=== PATIENT | male | born 1955 | race Caucasian/White ===

== ENCOUNTER 2025-09-02 13:59 | Emergency (ER) | payer OTHER, MEDICAID ==
[~2025-09-02] VITALS: Ht 182.9 cm; Wt 86.3 kg
[2025-09-02 14:04] VITALS: BP 138/82; RESP 18; TEMP 98; O2SAT 95
[2025-09-02 14:36] LABS: Hematocrit 45.8 % (41.0-53.0); Hemoglobin 15.5 g/dL (13.5-17.5); Mean Corpuscular Hemoglobin 29.2 pg (28.0-32.0); Mean Corpuscular Volume 86.2 fL (80.0-100.0); Nucleated Red Blood Cells % 0.1 %
[2025-09-02 14:44] LABS: Potassium 4.2 mmol/L (3.5-5.1); Sodium 140 mmol/L (136-145)
[2025-09-02 14:45] LABS: Anion Gap 8 (5-15); Carbon Dioxide 23 mmol/L (20-31)
[2025-09-02 14:46] LABS: Calcium 9.4 mg/dL (8.7-10.4)
--- NOTE | 2025-09-02 14:48 | DVH ---
EXAM: XY CHEST PORTABLE HISTORY: CHEST PAIN COMPARISON: None TECHNIQUE: Portable upright AP view of the chest was performed. FINDINGS: No pneumothorax, consolidative infiltrates, or pulmonary edema. There is mild central peribronchial thickening. The heart is not enlarged. IMPRESSION: Mild reactive airways disease. The lungs are otherwise clear.
[2025-09-02 14:50] LABS: Chloride 109 mmol/L (98-107)
[2025-09-02 14:51] LABS: BUN/Creatinine Ratio 18.9 (10.0-20.0); Blood Urea Nitrogen 21 mg/dL (9-23)
[2025-09-02 14:52] LABS: Glucose 107 mg/dL (74-106)
[2025-09-02 14:59] VITALS: PULSE 64
--- NOTE | 2025-09-02 14:59 | ED.PDOC ---
HPI Comments 70y M who presents to the ED for chief complaint of chest pain. Pt states he had chest pain last night at 7 PM. Pt states his pain started after he noticed his dog eating his oatmeal cookies. Pt states the pain was across his chest, with pain radiating to the jaw, pressure like in nature, rating the pain 5/10, constant, with no associated exacerbating or relieving factors. Pt had associated shortness of breath and nausea since last which has persisted . Pt states his pain went away but states it came back later that evening after his girlfriend came home. Pt states he came today for further evaluation. Pt in the ED,denies any current chest pain now in the ED but has persistence of his shortness of breath and nausea. Pt otherwise has stable vitals in the ED. Pt denies any other symptoms at this time. Pt denies these symptoms in the past. Chief Complaint: Chest Pain Time Seen by MD: 14:56 Reviewed Notes: Nurses Notes, Medications, Allergies Allergies: Coded Allergies: No Known Drug Allergy (Verified Allergy, Unknown, 09/02/25) Information Source: Patient Mode of Arrival: Wheelchair Brought in by: self Severity: Moderate Timing: Hours Duration: Since onset Prehospital treatment: None Location: Chest (R), Chest (L) Radiation: Jaw Quality: Pressure Onset: At Rest Cardiac Risk Factors: Hyperlipidemia, HTN, Diabetes PE Risk Factors: None Modifying Factors: Nothing Associated Signs and Symptoms: SOB, N/V Past Medical History PAST MEDICAL HISTORY: DM, High Lipids, HTN Surgical History (Other): R knee Family History Family History: Family hx of heart topher Social History Smoker: Non-Smoker Alcohol: Denies ETOH Use Drugs: Marijuana Lives In: Home Constitutional: denies: chills, diaphoresis, fatigue, fever, malaise, sweats, weakness, others EENTM: denies: blurred vision, double vision, ear bleeding, ear discharge, ear drainage, ear pain, ear ringing, eye pain, eye redness, hearing loss, mouth pain, mouth swelling, nasal discharge, nose bleeding, nose congestion, nose pain, photophobia, tearing, throat pain, throat swelling, voice changes, others Respiratory: reports: shortness of breath; denies: cough, hemoptysis, orthopnea, SOB at rest, SOB with excertion, stridor, wheezing, others Cardiovascular: reports: chest pain; denies: dizzy spells, diaphoresis, Dyspnea on exertion, edema, irregular heart beat, left arm pain, lightheadedness, palpitations, PND, syncope, others Gastrointestinal: reports: nausea; denies: abdomen distended, abdominal pain, blood streaked bowels, constipated, diarrhea, dysphagia, difficulty swallowing, hematemesis, melena, poor appetite, poor fluid intake, rectal bleeding, rectal pain, vomiting, others Genitourinary: denies: burning, dysuria, flank pain, frequency, hematuria, incontinence, penile discharge, penile sore, pain, testicle pain, testicle swelling, urgency, others Neurological: denies: dizziness, fainting, headache, left sided numbness, left sided weakness, numbness, paresthesia, pre-existing deficit, right sided numb ness, right sided weakness, seizure, speech problems, tingling, tremors, weakness, others Musculoskeletal: denies: back pain, gout, joint pain, joint swelling, muscle pain, muscle stiffness, neck pain, others Integumetry: denies: bruises, change in color, change in hair/nails, dryness, laceration, lesions, lumps, rash, wounds, others Allergic/Immunocompromised: denies: Difficulty Healing, Frequent Infections, Hives, Itching, others Hematologic/Lymphatic: denies: anemia, blood clots, easy bleeding, easy bruising, swollen glands, others Psychiatric: denies: anxiety, bipolar disorder, depression, hopeless, panic disorder, schizophrenia, sleepless, suicidal, others All Other Systems: Reviewed and Negative Physical Exam General Appearance: Moderate Distress HEENT: Normal ENT Inspection, Pharynx Normal, TMs Normal Neck: Full Range of Motion, Non-Tender, Normal, Normal Inspection Respiratory: Chest Non-Tender, Lungs Clear, No Accessory Muscle Use, No Respiratory Distress, Normal Breath Sounds Cardiovascular: No Edema, No JVD, No Murmur, No Gallop, Normal Peripheral Pulses, Regular Rate/Rhythm Breast Exam: Deferred Gastrointestinal: No Organomegaly, Non Tender, No Pulsatile Mass, Normal Bowel Sounds, Soft Genitalia: Deferred Pelvic: Deferred Rectal: Deferred Extremities: No calf tenderness, Normal capillary refill, Normal inspection, Normal range of motion, Non-tender, No pedal edema Musculoskeletal : Apperance: Normal Neurologic: Alert, stamp classifier II-XII nml as Tested, No Motor Deficits, Normal Affect, Normal Mood, No Sensory Deficits Cerebellar Function: Normal Reflexes: Normal Skin: Dry, Normal Color, Warm Lymphatic: No Adenopathy EKG EKG : Pulse Rate (adult): 64 [place]: Normal Cardiac Rhythm: NSR Block: None Hypertrophy: None ST: Normal Was a procedure done? Was a procedure done?: No CP Differential Dx Differential Diagnosis: A-fib, A-Flutter, Angina, Anxiety / Panic Attack, Atrial Dysrhythmia, AV Block 1st Degree, MD, Pulmonary Embolus, PVC's, Sinus Tachycardia Differential Diagnosis: Chest Wall Pain, Costochondritis, Esophageal reflux/spasm, Gastritis, Pericarditis, Pneumonia X-Ray, Labs, Meds, VS Vital Signs Date Time Temp Pulse Resp B/P (MAP) Pulse Ox O2 Delivery O2 Flow Rate FiO2 09/02/25 14:59 64 09/02/25 14:08 64 09/02/25 14:04 98.0 74 18 138/82 95 98.0 Lab Test 09/02/25 15:14 09/02/25 14:25 Range/Units Troponin I High Sensitivity Pending 35651 *H </=54 ng/L White Blood Count 12.8 H 4.4-10.8 10^3/uL Red Blood Count 5.31 4.5-5.90 10^6/uL Hemoglobin 15.5 13.5-17.5 g/dL Hematocrit 45.8 41.0-53.0 % Mean Corpuscular Volume 86.2 80.0-100.0 fL Mean Corpuscular Hemoglobin 29.2 28.0-32.0 pg Mean Corpuscular Hemoglobin Concent 33.9 32.0-36.0 g/dL Red Cell Distribution Width 12.7 11.8-14.3 % Platelet Count 255 140-450 10^3/uL Mean Platelet Volume 8.0 6.9-10.8 fL Neutrophils (%) (Auto) 67.5 37.0-80.0 % Lymphocytes (%) (Auto) 18.5 10.0-50.0 % Monocytes (%) (Auto) 9.3 0.0-12.0 % Eosinophils (%) (Auto) 3.9 0.0-7.0 % Basophils (%) (Auto) 0.8 0.0-2.0 % Neutrophils # (Auto) 8.7 H 1.6-8.6 10 ^3/uL Lymphocytes # (Auto) 2.4 0.4-5.4 10 ^3/uL Monocytes # (Auto) 1.2 0-1.3 10 ^3/uL Eosinophils # (Auto) 0.5 0-0.8 10 ^3/uL Basophils # (Auto) 0.1 0-0.2 10 ^3/uL Nucleated Red Blood Cells 0.1 % Sodium Level 140 136-145 mmol/L Potassium Level 4.2 3.5-5.1 mmol/L Chloride Level 109 H 98-107 mmol/L Carbon Dioxide Level 23 20-31 mmol/L Anion Gap 8 5-15 Blood Urea Nitrogen 21 9-23 mg/dL Creatinine 1.11 0.700-1.30 mg/dL Glomerular Filtration Rate Calc 71 >90 mL/min BUN/Creatinine Ratio 18.9 10.0-20.0 Serum Glucose 107 H 74-106 mg/dL Calcium Level 9.4 8.7-10.4 mg/dL PROCEDURE(s): CXRP - CHEST PORTABLE IMPRESSION: Mild reactive airways disease. The lungs are otherwise clear. IV Hep-Lock was established The CBC shows an elevated white blood cell count of 12.8 The rest of the CBC and the chemistry panel are within normal limits. [place] 1[place] [id number] The patient now states that he is leaving AMA. The patient did not want to listen so the patient has signed out AMA. We did tell him that the patient is having a heart attack but he is leaving any ways. The repeat EKG did not show ST-elevation so this is considered a non STEMI. Images Reviewed?: Images reviewed and evaluated by me Time of 1ST Reevaluation: 15:30 Reevaluation 1ST: Unchanged Patient Education/Counseling: Diagnosis, Treatment, Prognosis Family Education/Counseling: No Family Present SEPSIS Sepsis Screen Date sepsis recognized/suspect: Sep 02, 2025 Time Sepsis recognized/suspect: 1407 Recent Procedure: No On Antibiotic Therapy: No Respiratory Rate >20: No Heart Rate >90: No Temp<36 C (96.8 F) or >38.3 C: No SBP <90 or MAP <65 mmHG: No New Acute Mental Status Change: No Is the patient on CPAP, BIPAP,: No Physician Orders Chest Portable (09/02/25 14:09) Urinalysis (09/02/25 14:09) Electrocardigram (09/02/25 14:09) Troponin-I Hs (09/02/25 15:09) Electrocardigram (09/02/25 15:09) Electrocardigram (09/02/25 17:09) Heplock Iv (09/02/25 ) Vital Signs Date Time Temp Pulse Resp B/P (MAP) Pulse Ox O2 Delivery O2 Flow Rate FiO2 09/02/25 14:59 64 09/02/25 14:08 64 09/02/25 14:04 98.0 74 18 138/82 95 98.0 Laboratory Tests Test 09/02/25 14: White Blood Count 12.8 10^3/uL (4.4-10.8) H Departure 1 Departure Time of Disposition: 15:42 Impression: Primary Impression: Non-STEMI (non-ST elevated myocardial infarction) Additional Impression: Elevated troponin Disposition: ADMITTED INPATIENT Admit to: Tele Condition: Fair Critical Care Note Critical Care Time?: Yes (45 min-critical care time only) Stability Stability form required: Yes Unstable for transfer: Telemetry monitoring (Telemetry monitoring required), ED Physician Assesment (Clinical assesment) Heart Score Heart Score: Heart Score Response (Comments) Value History Moderate Suspicious 1 EKG Normal 0 Age <45 0 Risk Factors >3 or Hx ASHD 2 Troponin >3 x's Normal limit 2 Total 5 I personally scribed for KATHRINE HILL MD ([email or web address]) on 09/02/25 at 14:59. Electronically submitted by Kasie Rosario ([email or web address]). I personally scribed for KATHRINE HILL MD (SHERMAN) on 09/02/25 at 15:00. Electronically submitted by Kasie Rosario ([email or web address]). I personally scribed for KATHRINE HILL MD (SHERMAN) on 09/02/25 at 15:21. Electronically submitted by Kasie Rosario ([email or web address]). KATHRINE HILL MD Sep 02, 2025 14:59
[2025-09-02] MEDS ORDERED: LISI40TA16 PO (21:31)
[2025-09-02] MEDS ORDERED: AMLO1TAB23 PO (21:31)
--- NOTE | 2025-09-02 23:09 | ECG ---
[facility] Test Date: 2025-09-02 Test Time: 21:12:41 Pat Name: JING HARGROVE Department: ED Room: Gender: M Administrative Services Director: : 1955 Requested By: KATHRINE HILL Order Number: [id number] Reading MD: Measurements Intervals [place] Rate: 62 P: 53 PA: 174 QRS: -26 QRSD: 92 T: -23 QT: 422 QTc: 429 Interpretive Statements Sinus rhythm Inferior infarct, age indeterminate Please click the below link to view image of tracing.
--- NOTE | 2025-09-03 10:43 | ECG ---
[facility] Test Date: 2025-09-02 Test Time: 14:08:28 Pat Name: JING HARGROVE Department: ED Room: Gender: M Welfare Director: SIOBHAN : 1955 Requested By: KATHRINE HILL Order Number: [id number] Reading MD: Measurements Intervals [place] Rate: 64 P: 56 [place]: 173 QRS: -22 QRSD: 88 T: -3 QT: 396 QTc: 409 Interpretive Statements Sinus rhythm Inferior infarct, old Please click the below link to view image of tracing.
--- NOTE | 2025-09-03 10:43 | ECG ---
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
[2025-09-03] MEDS ORDERED: LORazepam 2MG/ML-1ML VIAL ONE (10:46)
[2025-09-03] MEDS ORDERED: ANGIOMAX 250 MG VIAL IV ONE (18:43)
[2025-09-03] MEDS ORDERED: SODIUM CHL 0.9% 50 ML ONE (18:43)
[2025-09-03] MEDS ORDERED: EPTIFIBATIDE INJ (2MG/ML) 10ML VIAL IV ONE (18:44)
[2025-09-05] MEDS ORDERED: ASPI-325 PO (11:14)
[2025-09-05] MEDS ORDERED: ATOR80TA PO (11:14)
[2025-09-05] MEDS ORDERED: CLOP75TA70 PO (11:14)
== END 2025-09-02 15:35 | disposition left against medical advice (07) ==
LOC: ER 13:59
DX: I21.4 Non-ST elevation (NSTEMI) myocardial infarction (principal); I10 Essential (primary) hypertension; E11.9 Type 2 diabetes mellitus without complications; J45.909 Unspecified asthma, uncomplicated; E78.5 Hyperlipidemia, unspecified; Z98.890 Other specified postprocedural states
CPT/HCPCS: 36415; 71045; 80048; 84484; 85025; 93005; 99291

== ENCOUNTER 2025-09-02 18:25 | Inpatient (IN) | payer OTHER, MEDICAID ==
[~2025-09-02] VITALS: Ht 182.9 cm; Wt 99.7 kg
--- NOTE | 2025-09-02 18:41 | ED.PDOC ---
HPI Comments 70-year-old male who came to ER for chest pains. Patient does have history of hypertension, diabetes, dyslipidemia, chronic smoker. Started having chest pains last night, sternal radiating to his jaw, associated with nausea. Patient went to ER earlier, diagnostics done, was being admitted for NSTEMI, however patient signed AMA. Patient decided come back to be re-evaluated for his chest pains Chief Complaint: Chest pain Time Seen by MD: 18:41 Reviewed Notes: Nurses Notes Allergies: Coded Allergies: No Known Drug Allergy (Verified Allergy, Unknown, 09/02/25) Information Source: Patient Mode of Arrival: Ambulatory Severity: Moderate Timing: Hours Duration: Minutes Prehospital treatment: 12 Lead EKG Location: Substernal Radiation: Jaw Past Medical History PAST MEDICAL HISTORY: DM, High Lipids, HTN Surgical History (Other): Right knee surgery Family History Family History: Family hx of heart topher Social History Smoker: Cigarettes, Greater Than 1 Pack/Day Alcohol: Denies ETOH Use Drugs: Marijuana Lives In: Home Constitutional: denies: chills, diaphoresis, fatigue, fever, malaise, sweats, weakness, others EENTM: denies: blurred vision, double vision, ear bleeding, ear discharge, ear drainage, ear pain, ear ringing, eye pain, eye redness, hearing loss, mouth pain, mouth swelling, nasal discharge, nose bleeding, nose congestion, nose pain, photophobia, tearing, throat pain, throat swelling, voice changes, others Respiratory: denies: cough, hemoptysis, orthopnea, SOB at rest, shortness of breath, SOB with excertion, stridor, wheezing, others Cardiovascular: reports: chest pain; denies: dizzy spells, diaphoresis, Dyspnea on exertion, edema, irregular heart beat, left arm pain, lightheadedness, palpitations, PND, syncope, others Gastrointestinal: reports: nausea; denies: abdomen distended, abdominal pain, blood streaked bowels, constipated, diarrhea, dysphagia, difficulty swallowing, hematemesis, melena, poor appetite, poor fluid intake, rectal bleeding, rectal pain, vomiting, others Genitourinary: denies: burning, dysuria, flank pain, frequency, hematuria, incontinence, penile discharge, penile sore, pain, testicle pain, testicle swelling, urgency, others Neurological: denies: dizziness, fainting, headache, left sided numbness, left sided weakness, numbness, paresthesia, pre-existing deficit, right sided numbness, right sided weakness, seizure, speech problems, tingling, tremors, weakness, others Musculoskeletal: denies: back pain, gout, joint pain, joint swelling, muscle pain, muscle stiffness, neck pain, others Integumetry: denies: bruises, change in color, change in hair/nails, dryness, laceration, lesions, lumps, rash, wounds, others Allergic/Immunocompromised: denies: Difficulty Healing, Frequent Infections, Hives, Itching, others Hematologic/Lymphatic: denies: anemia, blood clots, easy bleeding, easy bruising, swollen glands, others Endocrine: denies: excessive hunger, excessive sweating, excessive thirst, excessive urination, flushing, intolerance to cold, intolerance to heat, un explained weight gain, unexplained weight loss, others Psychiatric: denies: anxiety, bipolar disorder, depression, hopeless, panic disorder, schizophrenia, sleepless, suicidal, others Physical Exam General Appearance: Mild Distress HEENT: Normal ENT Inspection, Pharynx Normal, TMs Normal Neck: Full Range of Motion, Non-Tender, Normal, Normal Inspection Respiratory: Chest Non-Tender, Lungs Clear, No Accessory Muscle Use, No Respiratory Distress, Normal Breath Sounds Cardiovascular: No Edema, No JVD, No Murmur, No Gallop, Normal Peripheral Pulses, Regular Rate/Rhythm Breast Exam: Deferred Gastrointestinal: Soft, Other (obese) Genitalia: Deferred Pelvic: Deferred Rectal: Deferred Extremities: No calf tenderness, Normal capillary refill, Normal inspection, Normal range of motion, Non-tender, No pedal edema Musculoskeletal : Apperance: Normal Neurologic: Alert, podiatry professor II-XII nml as Tested, No Motor Deficits, Normal Affect, Normal Mood, No Sensory Deficits Cerebellar Function: Normal Reflexes: Normal Skin: Dry, Normal Color, Warm Lymphatic: No Adenopathy EKG EKG : Pulse Rate (adult): 77 Cardiac Rhythm: NSR Hypertrophy: LAE Was a procedure done? Was a procedure done?: No CP Differential Dx Differential Diagnosis: Angina, Anxiety / Panic Attack Differential Diagnosis: Angina, Chest Wall Pain, Costochondritis, Esophageal reflux/spasm, Gastritis, Myocardial Infarction X-Ray, Labs, Meds, VS Vital Signs Date Time Temp Pulse Resp B/P (MAP) Pulse Ox O2 Delivery O2 Flow Rate FiO2 09/02/25 19:54 67 17 145/86 09/02/25 18:57 20 98 Room Air* 0 21 09/02/25 18:44 97.9 74 16 144/83 95 97.9 09/02/25 18:41 77 09/02/25 18:32 66 Lab Test 09/02/25 19:47 09/02/25 18:52 Range/Units Troponin I High Sensitivity Pending 28377 *H </=54 ng/L White Blood Count 10.9 H 4.4-10.8 10^3/uL Red Blood Count 5.20 4.5-5.90 10^6/uL Hemoglobin 15.3 13.5-17.5 g/dL Hematocrit 44.9 41.0-53.0 % Mean Corpuscular Volume 86.3 80.0-100.0 fL Mean Corpuscular Hemoglobin 29.4 28.0-32.0 pg Mean Corpuscular Hemoglobin Concent 34.1 32.0-36.0 g/dL Red Cell Distribution Width 12.8 11.8-14.3 % Platelet Count 248 140-450 10^3/uL Mean Platelet Volume 8.0 6.9-10.8 fL Neutrophils (%) (Auto) 65.3 37.0-80.0 % Lymphocytes (%) (Auto) 20.2 10.0-50.0 % Monocytes (%) (Auto) 9.6 0.0-12.0 % Eosinophils (%) (Auto) 4.2 0.0-7.0 % Basophils (%) (Auto) 0.7 0.0-2.0 % Neutrophils # (Auto) 7.1 1.6-8.6 10 ^3/uL Lymphocytes # (Auto) 2.2 0.4-5.4 10 ^3/uL Monocytes # (Auto) 1.0 0-1.3 10 ^3/uL Eosinophils # (Auto) 0.5 0-0.8 10 ^3/uL Basophils # (Auto) 0.1 0-0.2 10 ^3/uL Nucleated Red Blood Cells 0.2 % Prothrombin Time 10.8 9.3-11.8 sec Prothrombin Time INR 1.02 0.9-1.15 Activated Partial Thromboplast Time 30.0 24.5-34.5 SEC Sodium Level 139 136-145 mmol/L Potassium Level 4.2 3.5-5.1 mmol/L Chloride Level 109 H 98-107 mmol/L Carbon Dioxide Level 22 20-31 mmol/L Anion Gap 8 5-15 Blood Urea Nitrogen 19 9-23 mg/dL Creatinine 1.06 0.700-1.30 mg/dL Glomerular Filtration Rate Calc 75 >90 mL/min BUN/Creatinine Ratio 17.9 10.0-20.0 Serum Glucose 104 74-106 mg/dL Calcium Level 9.3 8.7-10.4 mg/dL Magnesium Level 2.0 1.6-2.6 mg/dL Total Bilirubin 0.4 0.2-1.0 mg/dL Aspartate Amino Transferase (AST) 100 H 13-40 U/L Alanine Aminotransferase (ALT) 22 7-40 U/L Alkaline Phosphatase 56 46-116 U/L B-Type Natriuretic Peptide 230.03 0-100 pg/mL Total Protein 6.9 5.7-8.2 g/dL Albumin 4.2 3.2-4.8 g/dL Current Medications Medications (Trade) Dose Ordered Sig/Ebony Route Start Time Stop Time Status Last Admin Aspirin 162 mg ONCE ONCE PO 09/02/25 18:45 09/02/25 18:46 DC 09/02/25 19:01 Morphine Sulfate 4 mg ONCE ONCE IV 09/02/25 18:45 09/02/25 18:46 DC 09/02/25 19:54 Ondansetron HCl (Zofran) 4 mg ONCE ONCE IV 09/02/25 18:45 09/02/25 18:46 DC 09/02/25 19:54 Albuterol (Ventolin Medneb) 2.5 mg ONCE ONCE NEB 09/02/25 18:45 09/02/25 18:46 DC 09/02/25 18:56 Time of 1ST Reevaluation: 18:37 Reevaluation 1ST: Unchanged Patient Education/Counseling: Diagnosis, Treatment Family Education/Counseling: No Family Present SEPSIS Sepsis Screen Physician Orders Electrocardigram (09/02/25 18:35) Troponin-I Hs (09/02/25 19:35) Troponin-I Hs (09/02/25 21:35) Electrocardigram (09/02/25 19:35) Electrocardigram (09/02/25 21:35) Chest Xray 1 View (09/02/25 18:35) Platelet Monitoring (09/02/25 20:04) Heparin Per Standardized Proce (09/02/25 20:04) Discontinue All Im Injections (09/02/25 20:04) Heparin Sodium (Porcine) (09/02/25 20:15) Heparin Drip/D5w 100units/Ml (09/02/25 20:15) Vital Signs Date Time Temp Pulse Resp B/P (MAP) Pulse Ox O2 Delivery O2 Flow Rate FiO2 09/02/25 19:54 67 17 145/86 09/02/25 18:57 20 98 Room Air* 0 21 09/02/25 18:44 97.9 74 16 144/83 95 97.9 09/02/25 18:41 77 09/02/25 18:32 66 Laboratory Tests Test 09/02/25 18:52 White Blood Count 10.9 10^3/uL (4.4-10.8) H Medications Medications Dose Ordered Sig/Ebony Route Start Time Stop Time Status Last Admin Dose Admin Albuterol 2.5 mg ONCE ONCE NEB 09/02/25 18:45 09/02/25 18:46 DC 09/02/25 18:56 Aspirin 162 mg ONCE ONCE PO 09/02/25 18:45 09/02/25 18:46 DC 09/02/25 19:01 Morphine Sulfate 4 mg ONCE ONCE IV 09/02/25 18:45 09/02/25 18:46 DC 09/02/25 19:54 Ondansetron HCl 4 mg ONCE ONCE IV 09/02/25 18:45 09/02/25 18:46 DC 09/02/25 19:54 Departure 1 Departure Time of Disposition: 20:07 Impression: Primary Impression: Non-STEMI (non-ST elevated myocardial infarction) Additional Impression: Acute coronary syndrome Disposition: ADMITTED INPATIENT Admit to: Tele Condition: Guarded Discharged With: Self Comments 70-year-old male with chest pain. He was seen earlier this morning and left against medical advice. He is still having chest pain[place] [address]. I ordered aspirin and nitroglycerin and heparin bolus and drip. No signs of STEMI on the EKG. Patient will need to be admitted for supportive care and further workup and cardiology consultation Critical Care Note Critical Care Time?: Yes (35 min-critical care time only) Critical care comment: Chest painsTotal critical care time: Approximately 36 minutes Due to a high probability of clinically significant, life threatening d eterioration, the patient required my highest level of preparedness to intervene emergently and I personally spent this critical care time directly and personally managing the patient. This critical care time included obtaining a history; examining the patient; pulse oximetry; ordering and review of studies; arranging urgent treatment with development of a management plan; evaluation of patient's response to treatment; frequent reassessment; and, discussions with other providers. This critical care time was performed to assess and manage the high probability of imminent, life-threatening deterioration that could result in multi-organ failure. It was exclusive of separately billable procedures and treating other patients. Stability Stability form required: No Heart Score Heart Score: Heart Score Response (Comments) Value History Moderate Suspicious 1 EKG Repolarization Disturb 1 Age >65 2 Risk Factors >3 or Hx ASHD 2 Troponin >3 x's Normal limit 2 Total 8 I personally scribed for RON RITTER MD ([email or web address]) on 09/02/25 at 18:41. Electronically submitted by Foster Lombardo ([email or web address]). RON RITTER MD Sep 02, 2025 18:41
[2025-09-02] MEDS: ALBUTEROL SULF 2.5 MG/0.5ML(0.5%) NEB SOLN NEB ONE (18:56)
[2025-09-02 19:13] LABS: Hematocrit 44.9 % (41.0-53.0); Hemoglobin 15.3 g/dL (13.5-17.5); Mean Corpuscular Hemoglobin 29.4 pg (28.0-32.0); Mean Corpuscular Volume 86.3 fL (80.0-100.0); Nucleated Red Blood Cells % 0.2 %
[2025-09-02 19:24] LABS: INR 1.02 (0.9-1.15); Partial Thromboplastin Time 30.0 SEC (24.5-34.5); Prothrombin Time 10.8 sec (9.3-11.8)
[2025-09-02 19:33] LABS: Alanine Aminotransferase 22 U/L (7-40); Albumin 4.2 g/dL (3.2-4.8); Alkaline Phosphatase 56 U/L (46-116); Anion Gap 8 (5-15); BUN/Creatinine Ratio 17.9 (10.0-20.0); Blood Urea Nitrogen 19 mg/dL (9-23); Calcium 9.3 mg/dL (8.7-10.4); Carbon Dioxide 22 mmol/L (20-31); Glucose 104 mg/dL (74-106); Magnesium 2.0 mg/dL (1.6-2.6); Potassium 4.2 mmol/L (3.5-5.1); Sodium 139 mmol/L (136-145); Total Protein 6.9 g/dL (5.7-8.2)
[2025-09-02 19:34] LABS: Bilirubin, Total 0.4 mg/dL (0.2-1.0)
--- NOTE | 2025-09-02 19:34 | DVH ---
CHEST RADIOGRAPH INDICATION: chest pain TECHNIQUE: Single frontal view of the chest was obtained. COMPARISON: XY CHEST PORTABLE on DOS: 09/02/25 FINDINGS: Pulmonary vascular congestion. No significant pleural effusion. No pneumothorax. Stable cardiomediastinal silhouette. IMPRESSION: Pulmonary vascular congestion.
[2025-09-02 19:37] LABS: Chloride 109 mmol/L (98-107)
[2025-09-02] MEDS: NITROGLYCERIN 0.4 MG SL TAB SL ONE (19:49)
[2025-09-02] MEDS: MORPHINE SULFATE 4 MG/ML SYR/VIAL IV ONE (19:54)
[2025-09-02] MEDS: ONDANSETRON HCL 4 MG/2 ML VIAL IV ONE (19:54)
[2025-09-02] MEDS: HEPARIN SODIUM (PORCINE) 5000 UNITS/ML 1ML VIAL IV ONE (20:44)
[2025-09-02] MEDS: HEPARIN DRIP/D5W 100UNITS/ML 250 ML IV SCH (20:46)
[2025-09-02 20:57] VITALS: PULSE 67; RESP 17; O2SAT 95
[2025-09-02] MEDS ORDERED: MORPHINE SULFATE INJ 2 MG/ml SYRG IV PRN ×2 (21:00)
[2025-09-02] MEDS ORDERED: NITROGLYCERIN 0.4 MG SL TAB SL PRN (21:00)
--- NOTE | 2025-09-02 21:07 | DVHHPRES ---
History of Present Illness Resident Creating Document: JO SHRESTHA RESIDENT History of Present Illness Mr. Erik Whitley, in 70-year-old male with past medical history of hypertension, [id number] type 2 diabetes mellitus, COPD not on home oxygen presented to the ER with the complaints of severe retrosternal oppressive chest pain that started 7:00 p.m. yesterday. The chest pain was associated with severe jaw pain, nausea, vomiting. Initially the patient thought it was heart burn because he ate pizza and attributed the jaw pain as dental. He also had a fight with a friend before the pain started. However, the retrosternal oppressive pain started when the patient was lying down, he denies any d iaphoresis. After this episode the patient went to sleep after having a sleeping pill. During history and examination, patient also endorsed anxiety and wanted some sleeping aid. He says usually he is very anxious person. He woke up feeling like hung over, drained, exhausted. He denies shortness of breath, fever, cough, constipation, diarrhea, urinary symptoms, recent sick con tacts or travel history. 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 Allergies: None Home medications: Lisinopril, amlodipine, metformin,aleve, Tylenol, albuterol inhaler Smoking history: 40-80 pack years. Quit 3 months ago Alcohol: 1 bottle per day for 10 years. Quit 4 years ago Drugs: Active marijuana smoker Code status: Full code, however patient would like to revisit this decision again. Review of Systems Cardiovascular: Chest Pain Allergies: Coded Allergies: No Known Drug Allergy (Verified Allergy, Unknown, 09/02/25) Medications Current Medications Medications Dose Ordered Sig/Ebony Route Start Time Stop Time Status Last Admin Dose Admin Heparin Sodium/ Dextrose 250 ml @ 10 mls/hr Q24H IV 09/02/25 20:30 09/02/25 20:46 10 MLS/HR Exam Vital Signs Vital Signs Date Time Temp Pulse Resp B/P (MAP) Pulse Ox O2 Delivery O2 Flow Rate FiO2 09/02/25 19:54 67 17 145/86 09/02/25 18:57 98 Room Air* 0 21 09/02/25 18:44 97.9 97.9 Exam Pt is lying on bed General Appearance: Alert, Oriented X3, Cooperative, Mild distress HEENT: Atraumatic, Mucous membranes moist/pink Respiratory: Clear to auscultation, Normal air movement, No added sounds Cardiovascular: Regular rate, Normal S1, Normal S2, No murmurs Abdominal/ : Active bowel sounds, Soft, no distention, no tenderness Extremities: No edema, Normal pulses, No tenderness/swelling Skin: No Significant rash, except past surgical scars Neuro: Normal speech, sensorimotor deficits none Psych/Mental Status: Mental status NL, Mood NL Nurse was there as theology professor during examination Labs/Xrays Labs Test 09/02/25 19:47 09/02/25 18:52 Range/Units Troponin I High Sensitivity 65913 *H </=54 ng/L White Blood Count 10.9 H 4.4-10.8 10^3/uL Red Blood Count 5.20 4.5-5.90 10^6/uL Hemoglobin 15.3 13.5-17.5 g/dL Hematocrit 44.9 41.0-53.0 % Mean Corpuscular Volume 86.3 80.0-100.0 fL Mean Corpuscular Hemoglobin 29.4 28.0-32.0 pg Mean Corpuscular Hemoglobin Concent 34.1 32.0-36.0 g/dL Red Cell Distribution Width 12.8 11.8-14.3 % Platelet Count 248 140-450 10^3/uL Mean Platelet Volume 8.0 6.9-10.8 fL Neutrophils (%) (Auto) 65.3 37.0-80.0 % Lymphocytes (%) (Auto) 20.2 10.0-50.0 % Monocytes (%) (Auto) 9.6 0.0-12.0 % Eosinophils (%) (Auto) 4.2 0.0-7.0 % Basophils (%) (Auto) 0.7 0.0-2.0 % Neutrophils # (Auto) 7.1 1.6-8.6 10 ^3/uL Lymphocytes # (Auto) 2.2 0.4-5.4 10 ^3/uL Monocytes # (Auto) 1.0 0-1.3 10 ^3/uL Eosinophils # (Auto) 0.5 0-0.8 10 ^3/uL Basophils # (Auto) 0.1 0-0.2 10 ^3/uL Nucleated Red Blood Cells 0.2 % Prothrombin Time 10.8 9.3-11.8 sec Prothrombin Time INR 1.02 0.9-1.15 Activated Partial Thromboplast Time 30.0 24.5-34.5 SEC Sodium Level 139 136-145 mmol/L Potassium Level 4.2 3.5-5.1 mmol/L Chloride Level 109 H 98-107 mmol/L Carbon Dioxide Level 22 20-31 mmol/L Anion Gap 8 5-15 Blood Urea Nitrogen 19 9-23 mg/dL Creatinine 1.06 0.700-1.30 mg/dL Glomerular Filtration Rate Calc 75 >90 mL/min BUN/Creatinine Ratio 17.9 10.0-20.0 Serum Glucose 104 74-106 mg/dL Calcium Level 9.3 8.7-10.4 mg/dL Magnesium Level 2.0 1.6-2.6 mg/dL Total Bilirubin 0.4 0.2-1.0 mg/dL Aspartate Amino Transferase (AST) 100 H 13-40 U/L Alanine Aminotransferase (ALT) 22 7-40 U/L Alkaline Phosphatase 56 46-116 U/L B-Type Natriuretic Peptide 230.03 0-100 pg/mL Total Protein 6.9 5.7-8.2 g/dL Albumin 4.2 3.2-4.8 g/dL SEPSIS Sepsis Screen Date sepsis recognized/suspect: Sep 02, 2025 Time Sepsis recognized/suspect: 1845 Recent Procedure: No On Antibiotic Therapy: No Respiratory Rate >20: No Heart Rate >90: No Temp<36 C (96.8 F) or >38.3 C: No SBP <90 or MAP <65 mmHG: No New Acute Mental Status Change: No Is the patient on CPAP, BIPAP,: No Physician Orders Electrocardigram (09/02/25 18:35) Troponin-I Hs (09/02/25 21:35) Electrocardigram (09/02/25 19:35) Electrocardigram (09/02/25 21:35) Chest Xray 1 View (09/02/25 18:35) Platelet Monitoring (09/02/25 20:04) Heparin Per Standardized Proce (09/02/25 20:04) Discontinue All Im Injections (09/02/25 20:04) Heparin Drip/D5w 100units/Ml (09/02/25 20:30) Heparin Per Pharmacy Protocol (09/02/25 20:28) Admit (09/02/25 20:58) Allergies (09/02/25 20:58) Code Status (09/02/25 20:58) Oxygen Per Hour (09/02/25 20:58) Ondansetron Hcl (Zofran) (09/02/25 21:00) Complete Blood Count (09/03/25 04:00) Comprehensive Metabolic Panel (09/03/25 04:00) Echo 2d Mode Cardiac Dop (09/02/25 20:58) Clear Liq Diet (09/03/25 Breakfast) Morphine Sulfate Injection (09/02/25 21:00) Nitroglycerin Sublingual (Ntrostat Subli (09/02/25 21:00) Morphine Sulfate Injection (09/02/25 21:00) Oxygen By Nasal Cannula (09/02/25 20:58) Stat Ekg For Chest Pain (09/02/25 20:58) Notify Md Of Changes From Base (09/02/25 20:58) Culinary Art Teacher For 24 Hours (09/02/25 20:58) Emergency Dysrhythmia Protocol (09/02/25 20:58) Rhythm Strips Once Every Shift (09/02/25 20:58) Urinalysis (09/02/25 20:58) Drug Screen (09/02/25 20:58) Vital Signs Date Time Temp Pulse Resp B/P (MAP) Pulse Ox O2 Delivery O2 Flow Rate FiO2 09/02/25 19:54 67 17 145/86 09/02/25 18:57 20 98 Room Air* 0 21 09/02/25 18:44 97.9 74 16 144/83 95 97.9 09/02/25 18:41 77 09/02/25 18:32 66 Laboratory Tests Test 09/02/25 18:52 White Blood Count 10.9 10^3/uL (4.4-10.8) H Medications Medications Dose Ordered Sig/Ebony Route Start Time Stop Time Status Last Admin Dose Admin Albuterol 2.5 mg ONCE ONCE NEB 09/02/25 18:45 09/02/25 18:46 DC 09/02/25 18:56 2.5 MG Aspirin 162 mg ONCE ONCE PO 09/02/25 18:45 09/02/25 18:46 DC 09/02/25 19:01 162 MG Heparin Sodium (Porcine) 4,000 units ONCE ONCE IV 09/02/25 20:15 09/02/25 20:16 DC 09/02/25 20:44 4,000 UNITS Heparin Sodium/ Dextrose 250 ml @ 10 mls/hr Q24H IV 09/02/25 20:30 09/02/25 20:46 10 MLS/HR Morphine Sulfate 4 mg ONCE ONCE IV 09/02/25 18:45 09/02/25 18:46 DC 09/02/25 19:54 4 MG Ondansetron HCl 4 mg ONCE ONCE IV 09/02/25 18:45 09/02/25 18:46 DC 09/02/25 19:54 4 MG Assessment/Plan Assessment/Plan Chest pain due to ACS NSTEMI type 1 -morphine -nitroglycerin -ondansetron -troponin trending upwards, currently 14326. -EKG: No ST elevation -Repeat EKG and troponins -patient received aspirin loading dose in the ER -heparin drip started -cardiology consultation History of COPD not on home oxygen, not on exacerbation -breathing treatment with albuterol and ipratropium if needed Hypertensive heart disease -amlodipine 5 mg -lisinopril 40 mg Type 2 diabetes mellitus -serum glucose 104 -HbA1c ordered -mild insulin sliding scale ACHS Marijuana abuse disorder History of smoking, currently on varenicline -counseled regarding cessation for more than14 minutes GI prophylaxis: Pantoprazole DVT prophylaxis: Heparin Diet: Cardiac, NPO after midnight Goals of care discussed with the patient for more than 27 minutes: Full code status Case discussed with Dr. Batista, patient and RN Plan discussed with: Patient, Other (RN) My Orders Orders - JO SHRESTHA RESIDENT Procedure Category Date Status Time Admit ADMIT 09/02/25 Transmitted 20:58 Allergies HOWARD 09/02/25 Transmitted 20:58 Code Status CODE 09/02/25 Transmitted 20:58 Oxygen Per Hour RT 09/02/25 Transmitted 20:58 Ondansetron Hcl PHA 09/02/25 Transmitted (Zofran) 21:00 Complete Blood Count LAB 09/03/25 Verified 04:00 Comprehensive LAB 09/03/25 Verified Metabolic Panel 04:00 Echo 2d Mode Cardiac US 09/02/25 Transmitted DOP 20:58 Clear Liq Diet DIET 09/03/25 Transmitted Breakfast Morphine Sulfate PHA 09/02/25 Transmitted Injection 21:00 Nitroglycerin PHA 09/02/25 Transmitted Sublingual (Ntrostat 21:00 Morphine Sulfate PHA 09/02/25 Transmitted Injection 21:00 Oxygen By Nasal RT 09/02/25 Transmitted Cannula 20:58 Stat Ekg For Chest [facility] 09/02/25 Transmitted Pain 20:58 Notify Of Changes [facility] 09/02/25 Transmitted From Base 20:58 Culinary Art Teacher For [facility] 09/02/25 Transmitted 24 Hours 20:[address] [facility] 09/02/25 Transmitted Protocol 20:58 Rhythm Strips [address] [facility] 09/02/25 Transmitted Every Shift 20:58 Urinalysis LAB 09/02/25 Transmitted 20:58 Drug Screen LAB 09/02/25 Transmitted 20:58 Visit Coding STANDARD RES Billing Provider: TRISTAN BATISTA MD Date of Service if different f: Sep 02, 2025 Common Visit Codes: [id number] INP/OBS CARE (HIGH) Secondary Visit Codes: [id number] CARE PLAN 30 MINUTES JO SHRESTHA RESIDENT Sep 02, 2025 21:07
[2025-09-02] MEDS ORDERED: LISI40TA16 PO (21:31)
[2025-09-02] MEDS ORDERED: AMLO1TAB23 PO (21:31)
[2025-09-02 21:48] LABS: Cholesterol 179 mg/dL (< 200)
[2025-09-02 21:50] LABS: HDL Cholesterol 39 mg/dL (40-59); Triglycerides 186 mg/dL (< 150)
[2025-09-02] MEDS: MELATONIN 5 MG TAB PO ONE (22:00)
[2025-09-02 22:09] VITALS: O2SAT 95
[2025-09-02 22:13] VITALS: BP 139/82; PULSE 82; RESP 18; O2SAT 98
[2025-09-02 22:16] VITALS: BP 133/79; PULSE 64; RESP 18; TEMP 97.7; O2SAT 97
[2025-09-02 22:27] LABS: Urine Budding Yeast OCCASIONAL /hpf (None Seen); Urine Protein, UAD Negative (Negative)
[2025-09-02 22:40] LABS: INR 1.05 (0.9-1.15); Prothrombin Time 11.1 sec (9.3-11.8)
[2025-09-02 22:41] LABS: Cannabinoid Screen, Urine Pos (NEGATIVE); Opiate Scree,Urine Neg (NEGATIVE)
[2025-09-02 22:44] LABS: Amphetamine Screen, Urine Neg (NEGATIVE); Barbiturate Scree,Urine Neg (NEGATIVE); Benzodiazephine Screen, Urine Neg (NEGATIVE); Cocaine Screen, Urine Neg (NEGATIVE); Phencyclidine Screen, Urine Neg (NEGATIVE)
[2025-09-02 22:46] LABS: Partial Thromboplastin Time 88.9 SEC (24.5-34.5)
[2025-09-02 23:07] VITALS: BP 133/79; PULSE 64; PULSE 66; RESP 18; TEMP 97.7; O2SAT 96; O2SAT 97
[2025-09-03] VITALS (16 sets, daily range): BP systolic 124–152; BP diastolic 78–91; PULSE 50–78; RESP 15–18; TEMP 96.6–98; O2SAT 92–99
[2025-09-03 03:49] LABS: INR 1.04 (0.9-1.15); Partial Thromboplastin Time 47.7 SEC (24.5-34.5); Prothrombin Time 11.0 sec (9.3-11.8)
[2025-09-03] MEDS: HEPARIN DRIP/D5W 100UNITS/ML 250 ML IV SCH (04:22)
[2025-09-03 07:21] LABS: Hematocrit 44.3 % (41.0-53.0); Hemoglobin 14.8 g/dL (13.5-17.5); Mean Corpuscular Hemoglobin 28.9 pg (28.0-32.0); Mean Corpuscular Volume 86.2 fL (80.0-100.0); Nucleated Red Blood Cells % 0.1 %
[2025-09-03 07:32] LABS: Alanine Aminotransferase 20 U/L (7-40); Albumin 3.9 g/dL (3.2-4.8); Alkaline Phosphatase 53 U/L (46-116); Anion Gap 8 (5-15); BUN/Creatinine Ratio 16.8 (10.0-20.0); Bilirubin, Total 0.9 mg/dL (0.2-1.0); Blood Urea Nitrogen 16 mg/dL (9-23); Calcium 9.0 mg/dL (8.7-10.4); Carbon Dioxide 24 mmol/L (20-31); Glucose 94 mg/dL (74-106); Potassium 4.3 mmol/L (3.5-5.1); Sodium 140 mmol/L (136-145); Total Protein 6.4 g/dL (5.7-8.2)
[2025-09-03 07:46] LABS: Chloride 108 mmol/L (98-107)
--- NOTE | 2025-09-03 09:39 | DVHINCON2 ---
Date Seen: Sep 03, 2025 Referring Physician MD Carla resident Reason for Consultation NSTEMI History of Present Illness This is a 70-year-old male patient who presents to emergency room with chief complaint of chest pain. The patient reports that symptoms began one day prior to emergency room arrival. He states that he was sitting down at approximately 7:00 p.m. watching television when suddenly he began to feel chest pain. He describes the pain as unprovoked, constant, pressure-like in nature, substernal with associated jaw numbness. He also mentioned an episode of nausea and vomiting. He reports that the pain lasted for approximately 1 hour. He decided not to come to the emergency room that day because the pain had subsided. The following day, the patient reported generalized fatigue which prompted him to come to the emergency room. Initial twelve lead electrocardiogram reveals normal sinus rhythm with nonspecific ST segment changes to inferior leads. Initial troponin level of 51628bh/L. At the time of assessment, the patient is not experiencing any chest pain. Significant past medical history includes hypertension, dyslipidemia, prediabetes, COPD, tobacco use and marijuana use. The patient denies any previous cardiac workup. Of note, the patient was seen at this facility on 09/02/25 with troponin levels 89696ij/L, he left against medical advice and came back later that day. Past Medical History Past medical history reviewed. No other significant than mentioned above. 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 Family History Family history reviewed. Social History Patient has a 35 pack-year history, quit smoking approximately three months ago Admits to occasional marijuana use Denies any alcohol use Allergies: Coded Allergies: No Known Drug Allergy (Verified Allergy, Unknown, 09/02/25) Home Meds Reported Medications Lisinopril (Lisinopril) 40 Mg Tab, 40 TAB PO DAILY 09/02/25 Amlodipine Besylate (Amlodipine Besylate) 10 Mg Tab, 10 TAB PO DAILY 09/02/25 Home Meds Home medications reviewed. Current Medications Current Medications Medications (Trade) Dose Ordered Sig/Ebony Route PRN Reason Start Time Stop Time Status Last Admin Heparin Sodium/ Dextrose 250 ml @ 10 mls/hr Q24H IV 09/02/25 20:30 09/03/25 04:01 DC 09/02/25 20:46 Ondansetron HCl (Zofran) 4 mg Q4HP PRN IV NAUSEA / VOMITING 09/02/25 21:00 Morphine Sulfate 2 mg Q4HPRN PRN IV SEVERE PAIN (7-10 PAIN SCALE) 09/02/25 21:00 Nitroglycerin (Ntrostat Sublingual) 0.4 mg Q5MINP PRN SL FOR CHEST PAIN 09/02/25 21:00 Morphine Sulfate 2 mg Q30M PRN IV FOR CHEST PAIN 09/02/25 21:00 Albuterol (Ventolin Medneb) 1.25 mg Q4HPRN PRN NEB SHORTNESS OF BREATH 09/02/25 21:45 Ipratropium [place] (Atrovent Medneb) 0.5 mg Q4HPRN PRN NEB SHORTNESS OF BREATH 09/02/25 21:45 Pantoprazole Sodium (Protonix) 40 mg DAILY IV 09/03/25 10:00 Heparin Sodium/ Dextrose 250 ml @ 12 mls/hr [id number] IV 09/03/25 04:15 09/03/25 04:22 Review of Systems Constitutional: No symptom reported Ears, Nose, & Throat: No symptom reported Eyes: No symptom reported Neurological: No symptoms reported Pulmonary/Respiratory: No symptoms reported Cardiovascular: Chest pain Gastrointestinal: Nausea and vomiting Genitourinary: No symptom reported Musculoskeletal: No symptom reported Skin: No symptom reported Psychiatric: No symptom reported Endocrine: No symptom reported Hematologic/Lymphatic: No symptom reported Vital Signs Vital Signs Date Time Temp Pulse Resp B/P (MAP) Pulse Ox O2 Delivery O2 Flow Rate FiO2 09/03/25 05:00 98.0 78 16 125/78 (94) 95 98.0 09/02/25 23:07 Room Air* 0 21 Physical Exam General Appearance: Cooperative. Well-developed. Well-nourished. No acute distress. Pulmonary/Respiratory: Clear, bilateral breaths sounds. Cardiovascular/Chest: Regular rate and rhythm. Peripheral Pulses: 2+ Radial (R). 2+ Radial (L). 2+ Pedal (R). 2+ Pedal (L) Abdominal Exam: Normal bowel sounds. Ankle Exam: Negative ankle edema Lower extremities: Negative lower extremity edema Neuro/Mental Status: A/OX4, coherent. Thoughts/Psych: Normal thought pattern. Appropriate mood and affect. Good judgment and insight. Appearance: No acute distress. Skin Exam: Normal inspection. Normal color. Warm and dry. Labs/Diagnostic Data Labs Test 09/03/25 06:40 09/03/25 02:15 09/02/25 22:00 09/02/25 21:43 Range/Units White Blood Count 9.8 4.4-10.8 10^3/uL Red Blood Count 5.14 4.5-5.90 10^6/uL Hemoglobin 14.8 13.5-17.5 g/dL Hematocrit 44.3 41.0-53.0 % Mean Corpuscular Volume 86.2 80.0-100.0 fL Mean Corpuscular Hemoglobin 28.9 28.0-32.0 pg Mean Corpuscular Hemoglobin Concent 33.5 32.0-36.0 g/dL Red Cell Distribution Width 13.1 11.8-14.3 % Platelet Count 231 140-450 10^3/uL Mean Platelet Volume 8.0 6.9-10.8 fL Neutrophils (%) (Auto) 55.4 37.0-80.0 % Lymphocytes (%) (Auto) 26.8 10.0-50.0 % Monocytes (%) (Auto) 11.1 0.0-12.0 % Eosinophils (%) (Auto) 6.3 0.0-7.0 % Basophils (%) (Auto) 0.4 0.0-2.0 % Neutrophils # (Auto) 5.4 1.6-8.6 10 ^3/uL Lymphocytes # (Auto) 2.6 0.4-5.4 10 ^3/uL Monocytes # (Auto) 1.1 0-1.3 10 ^3/uL Eosinophils # (Auto) 0.6 0-0.8 10 ^3/uL Basophils # (Auto) 0 0-0.2 10 ^3/uL Nucleated Red Blood Cells 0.1 % Sodium Level 140 136-145 mmol/L Potassium Level 4.3 3.5-5.1 mmol/L Chloride Level 108 H 98-107 mmol/L Carbon Dioxide Level 24 20-31 mmol/L Anion Gap 8 5-15 Blood Urea Nitrogen 16 9-23 mg/dL Creatinine 0.95 0.700-1.30 mg/dL Glomerular Filtration Rate Calc 85 >90 mL/min BUN/Creatinine Ratio 16.8 10.0-20.0 Serum Glucose 94 74-106 mg/dL Calcium Level 9.0 8.7-10.4 mg/dL Total Bilirubin 0.9 0.2-1.0 mg/dL Aspartate Amino Transferase (AST) 70 H 13-40 U/L Alanine Aminotransferase (ALT) 20 7-40 U/L Alkaline Phosphatase 53 46-116 U/L Total Protein 6.4 5.7-8.2 g/dL Albumin 3.9 3.2-4.8 g/dL Prothrombin Time 11.0 9.3-11.8 sec Prothrombin Time INR 1.04 0.9-1.15 Activated Partial Thromboplast Time 47.7 H 24.5-34.5 SEC Urine Color Light-yellow Yellow Urine Clarity Clear Clear Urine pH 5.5 5.0-9.0 Urine Specific [place] 1.013 1.001-1.035 Urine Protein Negative Negative Urine Ketones Negative Negative Urine Blood Negative Negative /uL Urine Nitrite 1+ H Negative Urine Bilirubin Negative Negative Urine Urobilinogen Normal Negative mg/dL Urine Leukocyte Esterase Trace Negative /uL Urine RBC 7 0 - 3 /hpf Urine Microscopic WBC 3 0-3 /HPF Urine Squamous Epithelial Cells Few <5 /hpf Urine Calcium Oxalate Crystals Few None Seen Urine Bacteria None seen None Seen /hpf Urine Yeast (Budding) Occasional None Seen /hpf Urine Glucose Normal Normal mg/dL Urine Opiates Screen Neg NEGATIVE Urine Fentanyl Screen Neg NEGATIVE Urine Barbiturates Screen Neg NEGATIVE Urine Phencyclidine Screen Neg NEGATIVE Urine Amphetamines Screen Neg NEGATIVE Urine Benzodiazepines Screen Neg NEGATIVE Urine Cocaine Screen Neg NEGATIVE Urine Cannabinoids Screen Pos NEGATIVE Magnesium Level 2.0 1.6-2.6 mg/dL Troponin I High Sensitivity 74119 *H </=54 ng/L B-Type Natriuretic Peptide 202.68 0-100 pg/mL Test 09/02/25 19:47 09/02/25 18:52 Range/Units Triglycerides Level 186 H < 150 mg/dL Cholesterol Level 179 < 200 mg/dL LDL Cholesterol 123 H < 100 mg/dL HDL Cholesterol 39 L 40-59 mg/dL Hemoglobin A1c 5.6 <5.7 % A1C Assessment NSTEMI, rule out coronary artery disease Rule out structural heart disease Hypertension Dyslipidemia COPD History of tobacco use Marijuana use Plan/Recommendation We will continue with the following plan/recommendations (): * Transthoracic echocardiogram to evaluate cardiac function * Chest pain protocol * SALINAS score: 3 points * HEART score: 9 points * Heparin drip per ACS protocol * Single antiplatelet therapy and lipid-lowering agent * Close cardiac surveillance * Coronary angiogram Case reviewed and discussed with . Twelve lead electrocardiogram reviewed by production assistant. Given the patient's clinical presentation, significantly elevated troponin level, and twelve lead electrocardiogram, we will recommend for the patient undergo a coronary angiogram with left heart catheterization. The procedure was discussed with the patient in full detail including risks and benefits. Risks include but are not limited to bleeding, contrast-induced nephropathy, coronary dissection, stroke, and even . The patient understands and is agreeable to undergo the procedure. We will schedule the patient at soonest availability on 09/03/2025. Thank you for allowing us to care for this patient. Please call with any questions or concerns. Critical care time spent: 44 minutes This medical document was created using an electronic medical record system with voice recognition software and computerized dictation system. Although this document has been carefully reviewed, there might still be some phonetic and typographical errors. Occasional wrong-word or ``sound-alike substitutions may have occurred due to the inherent limitations of voice recognition software. These areas are purely typographical due to imperfections of the software programs and do not reflect any compromise in the patient's medical care. Please read the chart carefully and recognize, using context, where these substitutions have occurred. Plan discussed with: Patient NYHA Physical activity limitations: NA Date of Service: Sep 03, 2025 Billing Provider: ANDIE BERNSTEIN Cardiology Common Codes: [id number] INP/OBS CARE (High) Cardiology Consultation Codes: [id number] CONSULT <45MIN ANDIE BERNSTEIN Sep 03, 2025 09:39
--- NOTE | 2025-09-03 10:35 | DVHPN2 ---
Subjective 70-year-old male with a history of COPD, diabetes, hypertension was admitted for chest pain was diagnosed [place] [address] He is better now He is complaining of anxiety He is scheduled for heart catheterization today Changes from previous H/P or p: Changes Cardiovascular: Chest Pain Objective Vitals Vital Signs Date Time Temp Pulse Resp B/P (MAP) Pulse Ox O2 Delivery O2 Flow Rate FiO2 09/03/25 05:00 98.0 78 16 125/78 (94) 95 98.0 09/02/25 23:07 Room Air* 0 21 Intake/Output Intake and Output 09/03/25 07:00 Intake Total 410 ml Balance 410 ml Intake Oral 400 ml IV Total 10 ml # Voids 1 General Appearance: Alert, Oriented X3, Cooperative Lungs: Clear to auscultation, Normal air movement Cardiovascular: Regular rate, Normal S2, No murmurs Abdomen: Normal bowel sounds, Soft, No tenderness Extremities: No edema Medications Current Medications Medications Dose Ordered Sig/Ebony Route Start Time Stop Time Status Last Admin Dose Admin Ondansetron HCl 4 mg Q4HP PRN IV 09/02/25 21:00 Morphine Sulfate 2 mg Q4HPRN PRN IV 09/02/25 21:00 Nitroglycerin 0.4 mg Q5MINP PRN SL 09/02/25 21:00 Morphine Sulfate 2 mg Q30M PRN IV 09/02/25 21:00 Albuterol 1.25 mg Q4HPRN PRN NEB 09/02/25 21:45 Ipratropium [place] 0.5 mg Q4HPRN PRN NEB 09/02/25 21:45 Pantoprazole Sodium 40 mg DAILY IV 09/03/25 10:00 Heparin Sodium/ Dextrose 250 ml @ 12 mls/hr [id number] IV 09/03/25 04:15 09/03/25 04:22 12 MLS/HR Atorvastatin Calcium 40 mg HS PO 09/03/25 22:00 Aspirin 81 mg DAILY PO 09/04/25 10:00 UNV Laboratory Results Laboratory Tests 09/03/25 06:40 Chemistry Test 09/02/25 18:52 09/02/25 21:43 09/03/25 06:40 Albumin 4.2 g/dL (3.2-4.8) 3.9 g/dL (3.2-4.8) Calcium Level 9.3 mg/dL (8.7-10.4) 9.0 mg/dL (8.7-10.4) Magnesium Level 2.0 mg/dL (1.6-2.6) 2.0 mg/dL (1.6-2.6) Total Protein 6.9 g/dL (5.7-8.2) 6.4 g/dL (5.7-8.2) Coagulation Test 09/02/25 18:52 09/02/25 21:43 09/03/25 02:15 Prothrombin Time 10.8 sec (9.3-11.8) 11.1 sec (9.3-11.8) 11.0 sec (9.3-11.8) Prothrombin Time INR 1.02 (0.9-1.15) 1.05 (0.9-1.15) 1.04 (0.9-1.15) Activated Partial Thromboplast Time 30.0 SEC (24.5-34.5) 88.9 SEC (24.5-34.5) *H 47.7 SEC (24.5-34.5) H Lipid panel Test 09/02/25 19:47 Cholesterol Level 179 mg/dL (< 200) HDL Cholesterol 39 mg/dL (40-59) L Triglycerides Level 186 mg/dL (< 150) H Cardiac Markers Test 09/02/25 18:52 09/02/25 21:43 B-Type Natriuretic Peptide 230.03 pg/mL (0-100) 202.68 pg/mL (0-100) LFT Test 09/02/25 18:52 09/03/25 06:40 Alanine Aminotransferase (ALT) 22 U/L (7-40) 20 U/L (7-40) Alkaline Phosphatase 56 U/L (46-116) 53 U/L (46-116) Aspartate Amino Transferase (AST) 100 U/L (13-40) H 70 U/L (13-40) H Total Bilirubin 0.4 mg/dL (0.2-1.0) 0.9 mg/dL (0.2-1.0) HgA1c, TSH Test 09/02/25 18:52 Hemoglobin A1c 5.6 % A1C (<5.7) Urinalysis Test 09/02/25 22:00 Urine Color Light-yellow (Yellow) Urine Clarity Clear (Clear) Urine pH 5.5 (5.0-9.0) Urine Specific [place] 1.013 (1.001-1.035) Urine Protein Negative (Negative) Urine Ketones Negative (Negative) Urine Blood Negative /uL (Negative) Urine Nitrite 1+ (Negative) H Urine Bilirubin Negative (Negative) Urine Urobilinogen Normal mg/dL (Negative) Urine Leukocyte Esterase Trace /uL (Negative) Urine RBC 7 /hpf (0 - 3) Urine Microscopic WBC 3 /HPF (0-3) Urine Squamous Epithelial Cells Few /hpf (<5) Urine Calcium Oxalate Crystals Few (None Seen) Urine Bacteria None seen /hpf (None Seen) Urine Yeast (Budding) Occasional /hpf (None Urine Glucose Normal mg/dL (Normal) Assessment/Plan Assessment/Plan Acute AL, NSTEMI type 1 Hypertension Type 2 diabetes COPD Mixed hyperlipidemia Anxiety Plan Keep NPO Coronary angiogram today Aspirin IV heparin Beta blockers Morphine p.r.n. Lipitor Oxygen as needed Full code Monitor closely Ativan p.r.n. for anxiety Plan discussed with: Patient Date of Service: Sep 03, 2025 Billing Provider: CHRISTY HONEYCUTT MD Common Visit Codes: NOT BILLABLE CHRISTY HONEYCUTT MD Sep 03, 2025 10:35
[2025-09-03] MEDS: PANTOPRAZOLE 40 MG/10 ML VIAL INJ IV SCH (10:57)
[2025-09-03] MEDS: LORazepam 2MG/ML-1ML VIAL IV PRN (10:57)
[2025-09-03 11:32] LABS: INR 1.03 (0.9-1.15); Partial Thromboplastin Time 50.0 SEC (24.5-34.5); Prothrombin Time 10.9 sec (9.3-11.8)
[2025-09-03 16:31] LABS: INR 1.03 (0.9-1.15); Partial Thromboplastin Time 58.7 SEC (24.5-34.5); Prothrombin Time 10.9 sec (9.3-11.8)
[2025-09-03] MEDS: HEPARIN IN NS 1000Units/500mL 1,500 ML ONE (17:42)
[2025-09-03] MEDS: VERAPAMIL 2.5MG/ML INJ 2ML VIAL IV ONE (18:06)
[2025-09-03] MEDS: LIDOCAINE 2%HCL (LOCAL ANESTH.) INJ 20ML MDV ONE (18:06)
[2025-09-03] MEDS: fentaNYL CITRATE 100 MCG/2 ML VL ONE ×2 (18:06→19:32)
[2025-09-03] MEDS: MIDAZOLAM HCL 2MG/2ML 2ml VIAL (1mg/ml) ONE ×2 (18:06→19:09)
[2025-09-03] MEDS: NITROGLYCERIN 50MG/250ML 250 ML IV ONE (18:06)
[2025-09-03] MEDS: ANGIOMAX 250 MG VIAL IV ONE (19:07)
[2025-09-03] MEDS: IODIXANOL 320MG/ML 100ML BTL IV ONE ×2 (19:08→20:21)
[2025-09-03] MEDS: SODIUM CHL 0.9% 50 ML ONE (19:16)
[2025-09-03] MEDS: TICAGRELOR 90 MG TAB ONE (19:39)
[2025-09-03] MEDS: SODIUM CHLORIDE 0.9% 1,000 ML IV ONE (21:00)
--- NOTE | 2025-09-03 21:02 | DVHSR ---
APPROVED REPORT EXAM: Two-dimensional and M-mode echocardiogram with Doppler and color Doppler. Blood Pressure: 115/82 mmHg INDICATION r/o strctural heart disease RISK FACTORS Obesity: Height: 6'0, Weight: 212 DIMENSIONS LVDd 4.5 (3.8-5.7cm) LA (2D) 3.7 (1.9-4.0cm) Aortic Root 3.7 (2.0-3.7cm) LVDs 3.3 (2.5-4.0cm) LA (MM) (1.9-4.0cm) Aortic Cusp Exc 1.3 (1.5-2.0cm) EF (%) 55.0 (55-70%) Rt. Atrium 4.3 (1.9-4.0cm) Asc. Aorta cm IVSd 1.0 (0.7-1.1cm) RV (D) 3.9 (1.8-2.4cm) PWd 1.1 (0.7-1.1cm) Mitral Valve Mitral Mitral Stenosis E wave 0.68m/s MV Mean GR. mmHg A wave 0.88m/s MV Peak GR. mmHg E/A ratio 0.8 2D MVA cm2 DECEL Time 282ms PRESS 1/2 Time ms Aortic Valve Aortic Valve Aortic Stenosis V1 1.16m/s AO Mean GR. 4mmHg V2 1.37m/s AO Peak GR. 8mmHg LVOT Diameter 2.3 (1.8-2.4cm) Doppler SHARA 3.52cm2 Pulmonic Valve V2 0.91m/s Other Information Technically limited study due to body habitus. Conclusion MODERATELY CALCIFIED AORTIC LEAFLETS MILD LVH AND MILD LV DIASTOLIC DYSFUNCTION LV EF IS 65% NORMAL MV,TV AND PV NO EFFUSION
[2025-09-03] MEDS: METOPROLOL TARTRATE 25 MG TAB PO ONE (22:00)
[2025-09-03] MEDS ORDERED: ATORVASTATIN 20 MG TAB PO SCH (22:00)
[2025-09-03] MEDS ORDERED: METOPROLOL TARTRATE 25 MG TAB PO SCH (22:00)
--- NOTE | 2025-09-03 22:03 | DVHOP ---
DATE OF SURGERY: 09/03/2025 TECHNIQUE PERFORMED: ? Emergency case. ? Ultrasound right radial artery. ? Management of conscious sedation. ? Ultrasound guided insertion of 6-Armenian arterial line in the right radial artery. ? Right coronary angiography. ? Attempt thrombectomy of the right coronary artery. ? Balloon angioplasty of the right coronary artery with a 4.0 x 15 mm in length semi-compliant balloon. ? Stenting and angioplasty of the right coronary artery with a 5.0 x 24 mm in length 5.0 Epes Edi stent of the [employer]. ? The ultrasound of the right coronary artery and stent region. ? Balloon angioplasty of the right coronary artery stent with a 5.0 x 15 mm in length noncompliant balloon and mid artery size of 5.3 mm in size. ? Use of the Assist device, which is a cross catheter to facilitate the passing of the wire. COMPLICATIONS: None. ASSISTANTS: Assisted by our staff. Srini Malcolm, Paulo Mckeon, and Daniel. INDICATIONS: Acute non-ST elevation myocardial infarction, troponin 42780. 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 DESCRIPTION OF PROCEDURE: The procedure, risks and benefits have been discussed in the standard manner. The patient was brought to the ammunition assembly ii laborer. The right radial arterial line also has been placed and we have put 3DRC guiding catheter and the right coronary angiography has been done. We have noted that it is a thrombotic lesion, so we have used a [employer] wire and unable to cross the lesion. We put a cross catheter and with the help of the cross catheter, it has been passed to the most proximal part of the lesion. Subsequently, we have changed the wire and we have now put a wire which is a Choice accessible wire which was able to cross it. Subsequently, now we put a 4.0 x 15 mm and semi-compliant balloon, balloon angioplasty was done and it went very well. Subsequently now, we also put a Penumbra catheter, able to get through it but unable to function. Now we have put the stent after we have changed the catheter to the ER1 catheter and we have put a 5.0 x 24 mm in length [place] Epes stent which was deployed stent size was increased to 5.1 mm in diameter and inflated for 31 seconds. Subsequently, we did intravascular ultrasound. We found there is some minor gap between stent and media. We also balloon 5.0 x 15 balloon angioplasty of the stent, made the whole stent size to 5.3 mm proximally, mid, and distally. Balloon deflated and had been discontinued. The procedure has been completed very well. There were no complications. The patient did well. The patient was given Brilinta in the ammunition assembly ii laborer 180 mg. At this time, we have not given the Integrilin drip because the patient has already had a Choice wire, so I do not want to take any risk of any pericardial bleed. Overall, the patient is symptom free, tolerated Brilinta also very well. Angiomax also has been continued all along now. CONCLUSION: Prior to performing the procedure, ? The right coronary artery is a very large super dominant artery. The right coronary artery is 99.9% block, type C lesion, thrombosis having noted in the entire proximal part of the lesion. SALINAS grade 2 flow. Postprocedure, it is SALINAS grade 3 flow. Residual stenosis is 0%. No spasm. No dissection. No thrombosis. The artery is widely open. It is a successful procedure. CONCLUSION: This is a successful procedure and the arterial size is now 5.3 mm in size. PLAN OF ACTION: Brilinta 90 mg b.i.d., metoprolol, cholesterol reducing medication. Dr. Dover is the admitting doctor over here, so I also discussed with him. Pineda Sánchez MD MP/VIOLETTA TID: [id number] RECEIPT: [id number] [facility]
[2025-09-03] MEDS: ATORVASTATIN 20 MG TAB PO SCH (22:27)
--- NOTE | 2025-09-03 23:13 | DVHINCON2 ---
Date Seen: Sep 03, 2025 Referring Physician MD Carla resident Reason for Consultation NSTEMI History of Present Illness This is a 70-year-old male with a past medical history of hypertension, dyslipidemia, prediabetes, COPD, tobacco use and marijuana use who presents to emergency room with a complaint of chest pain. The patient reports that symptoms began one day prior to emergency room arrival. He states that he was sitting down at approximately 7:00 p.m. watching television when suddenly he began to feel chest pain. He describes the pain as unprovoked, constant, pressure-like in nature, substernal with associated jaw numbness. He also mentioned an episode of nausea and vomiting. He reports that the pain lasted for approximately 1 hour. He decided not to come to the emergency room that day because the pain had subsided. The following day, the patient reported generalized fatigue which prompted him to come to the emergency room. Initial twelve lead electrocardiogram reveals normal sinus rhythm with nonspecific ST segment changes to inferior leads. Initial troponin level of 06933uv/L. At the time of assessment, the patient is not experiencing any chest pain. The patient denies any previous cardiac workup. Patient was admitted to the hospital. I am asked to consult on this patient. Past Medical History Past medical history reviewed. No other significant than mentioned above. 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 Allergies: Coded Allergies: No Known Drug Allergy (Verified Allergy, Unknown, 09/02/25) Home Meds Reported Medications Lisinopril (Lisinopril) 40 Mg Tab, 40 TAB PO DAILY 09/02/25 Amlodipine Besylate (Amlodipine Besylate) 10 Mg Tab, 10 TAB PO DAILY 09/02/25 Current Medications Current Medications Medications (Trade) Dose Ordered Sig/Ebony Route PRN Reason Start Time Stop Time Status Last Admin Heparin Sodium/ Dextrose 250 ml @ 10 mls/hr Q24H IV 09/02/25 20:30 09/03/25 04:01 DC 09/02/25 20:46 Ondansetron HCl (Zofran) 4 mg Q4HP PRN IV NAUSEA / VOMITING 09/02/25 21:00 Morphine Sulfate 2 mg Q4HPRN PRN IV SEVERE PAIN (7-10 PAIN SCALE) 09/02/25 21:00 Nitroglycerin (Ntrostat Sublingual) 0.4 mg Q5MINP PRN SL FOR CHEST PAIN 09/02/25 21:00 Morphine Sulfate 2 mg Q30M PRN IV FOR CHEST PAIN 09/02/25 21:00 Albuterol (Ventolin Medneb) 1.25 mg Q4HPRN PRN NEB SHORTNESS OF BREATH 09/02/25 21:45 Ipratropium [place] (Atrovent Medneb) 0.5 mg Q4HPRN PRN NEB SHORTNESS OF BREATH 09/02/25 21:45 Pantoprazole Sodium (Protonix) 40 mg DAILY IV 09/03/25 10:00 09/03/25 10:57 Heparin Sodium/ Dextrose 250 ml @ 12 mls/hr [id number] IV 09/03/25 04:15 09/03/25 04:22 Atorvastatin Calcium (Lipitor) 40 mg HS PO 09/03/25 22:00 Aspirin 81 mg DAILY PO 09/04/25 10:00 09/03/25 10:31 DC Aspirin (Ecotrin Enteric Coated Tablet) 81 mg DAILY PO 09/04/25 10:00 Lorazepam (Ativan Inj) 0.5 mg Q6HP PRN IV ANXIETY 09/03/25 10:45 09/03/25 10:57 Metoprolol Tartrate (Lopressor Tablet) 12.5 mg BID PO 09/03/25 22:00 Review of Systems Constitutional: No symptom reported Ears, Nose, & Throat: No symptom reported Eyes: No symptom reported Neurological: No symptoms reported Pulmonary/Respiratory: No symptoms reported Cardiovascular: Chest pain Gastrointestinal: Nausea and vomiting Genitourinary: No symptom reported Musculoskeletal: No symptom reported Skin: No symptom reported Psychiatric: No symptom reported Endocrine: No symptom reported Hematologic/Lymphatic: No symptom reported Vital Signs Vital Signs Date Time Temp Pulse Resp B/P (MAP) Pulse Ox O2 Delivery O2 Flow Rate FiO2 09/03/25 10:00 96 Room Air* 0 21 09/03/25 09:00 96.6 57 16 131/84 (100) 96.6 Physical Exam GENERAL: Alert and oriented x 3. No acute distress. EYES: PERRL, EOMI. Anicteric. HENT: Moist mucous membranes. LUNGS: Clear to auscultation bilaterally. CARDIOVASCULAR: Regular rate and rhythm. ABDOMEN: Soft, nontender and nondistended. EXTREMITIES: No edema. NEUROLOGIC: No focal neurological deficits. SKIN: Warm, dry. Labs/Diagnostic Data Labs Test 09/03/25 10:18 09/03/25 06:40 09/02/25 22:00 09/02/25 21:43 Range/Units Prothrombin Time 10.9 9.3-11.8 sec Prothrombin Time INR 1.03 0.9-1.15 Activated Partial Thromboplast Time 50.0 H 24.5-34.5 SEC White Blood Count 9.8 4.4-10.8 10^3/uL Red Blood Count 5.14 4.5-5.90 10^6/uL Hemoglobin 14.8 13.5-17.5 g/dL Hematocrit 44.3 41.0-53.0 % Mean Corpuscular Volume 86.2 80.0-100.0 fL Mean Corpuscular Hemoglobin 28.9 28.0-32.0 pg Mean Corpuscular Hemoglobin Concent 33.5 32.0-36.0 g/dL Red Cell Distribution Width 13.1 11.8-14.3 % Platelet Count 231 140-450 10^3/uL Mean Platelet Volume 8.0 6.9-10.8 fL Neutrophils (%) (Auto) 55.4 37.0-80.0 % Lymphocytes (%) (Auto) 26.8 10.0-50.0 % Monocytes (%) (Auto) 11.1 0.0-12.0 % Eosinophils (%) (Auto) 6.3 0.0-7.0 % Basophils (%) (Auto) 0.4 0.0-2.0 % Neutrophils # (Auto) 5.4 1.6-8.6 10 ^3/uL Lymphocytes # (Auto) 2.6 0.4-5.4 10 ^3/uL Monocytes # (Auto) 1.1 0-1.3 10 ^3/uL Eosinophils # (Auto) 0.6 0-0.8 10 ^3/uL Basophils # (Auto) 0 0-0.2 10 ^3/uL Nucleated Red Blood Cells 0.1 % Sodium Level 140 136-145 mmol/L Potassium Level 4.3 3.5-5.1 mmol/L Chloride Level 108 H 98-107 mmol/L Carbon Dioxide Level 24 20-31 mmol/L Anion Gap 8 5-15 Blood Urea Nitrogen 16 9-23 mg/dL Creatinine 0.95 0.700-1.30 mg/dL Glomerular Filtration Rate Calc 85 >90 mL/min BUN/Creatinine Ratio 16.8 10.0-20.0 Serum Glucose 94 74-106 mg/dL Calcium Level 9.0 8.7-10.4 mg/dL Total Bilirubin 0.9 0.2-1.0 mg/dL Aspartate Amino Transferase (AST) 70 H 13-40 U/L Alanine Aminotransferase (ALT) 20 7-40 U/L Alkaline Phosphatase 53 46-116 U/L Total Protein 6.4 5.7-8.2 g/dL Albumin 3.9 3.2-4.8 g/dL Urine Color Light-yellow Yellow Urine Clarity Clear Clear Urine pH 5.5 5.0-9.0 Urine Specific [place] 1.013 1.001-1.035 Urine Protein Negative Negative Urine Ketones Negative Negative Urine Blood Negative Negative /uL Urine Nitrite 1+ H Negative Urine Bilirubin Negative Negative Urine Urobilinogen Normal Negative mg/dL Urine Leukocyte Esterase Trace Negative /uL Urine RBC 7 0 - 3 /hpf Urine Microscopic WBC 3 0-3 /HPF Urine Squamous Epithelial Cells Few <5 /hpf Urine Calcium Oxalate Crystals Few None Seen Urine Bacteria None seen None Seen /hpf Urine Yeast (Budding) Occasional None Seen /hpf Urine Glucose Normal Normal mg/dL Urine Opiates Screen Neg NEGATIVE Urine Fentanyl Screen Neg NEGATIVE Urine Barbiturates Screen Neg NEGATIVE Urine Phencyclidine Screen Neg NEGATIVE Urine Amphetamines Screen Neg NEGATIVE Urine Benzodiazepines Screen Neg NEGATIVE Urine Cocaine Screen Neg NEGATIVE Urine Cannabinoids Screen Pos NEGATIVE Magnesium Level 2.0 1.6-2.6 mg/dL Troponin I High Sensitivity 87670 *H </=54 ng/L B-Type Natriuretic Peptide 202.68 0-100 pg/mL Test 09/02/25 19:47 09/02/25 18:52 Range/Units Triglycerides Level 186 H < 150 mg/dL Cholesterol Level 179 < 200 mg/dL LDL Cholesterol 123 H < 100 mg/dL HDL Cholesterol 39 L 40-59 mg/dL Hemoglobin A1c 5.6 <5.7 % A1C Assessment NSTEMI, rule out coronary artery disease. Rule out structural heart disease. Hypertension. Dyslipidemia. COPD. History of tobacco use. Marijuana use. Plan/Recommendation I agree with your ongoing assessment and care of plan. Patient has been seen by Rosana Mata NP on my behalf, her and I discussed the plan with the patient. Transthoracic echocardiogram to evaluate cardiac function. Chest pain protocol. SALINAS score: 3 points. HEART score: 9 point. Heparin drip per ACS protocol. Single antiplatelet therapy and lipid-lowering agent. Close cardiac surveillance. Coronary angiogram. Twelve lead electrocardiogram reviewed by me. Given the patient's clinical presentation, significantly elevated troponin level, and twelve lead electrocardiogram, we will recommend for the patient undergo a coronary angiogram with left heart catheterization. The procedure was discussed with the patient in full detail including risks and benefits. Risks include but are not limited to bleeding, contrast-induced nephropathy, coronary dissection, stroke, and even . The patient understands and is agreeable to undergo the procedure. We will schedule the patient at soonest availability on 09/03/2025. Additional plan as per the hospital course. Plan discussed with: Patient NYHA Physical activity limitations: NA Date of Service: Sep 03, 2025 Billing Provider: NOLAN JULIO MD Cardiology Common Codes: [id number] INP/OBS CARE (High) Cardiology Consultation Codes: [id number] CONSULT <45MIN NOLAN JULIO MD Sep 03, 2025 13:20
[2025-09-03] MEDS: MELATONIN 5 MG TAB PO ONE (23:51)
[2025-09-04] VITALS (13 sets, daily range): BP systolic 127–141; BP diastolic 76–90; PULSE 62–78; RESP 15–19; TEMP 97.3–98; O2SAT 94–100
[2025-09-04 00:51] LABS: INR 1.17 (0.9-1.15); Partial Thromboplastin Time 51.0 SEC (24.5-34.5); Prothrombin Time 12.2 sec (9.3-11.8)
--- NOTE | 2025-09-04 02:20 | CONS ---
Pharmacy Clinical Information: HEPARIN DENISSE. RN TO STOP HEPARIN DRIP. AURELIA RO Sep 04, 2025 02:20
[2025-09-04 06:24] LABS: Calcium 9.2 mg/dL (8.7-10.4); Chloride 106 mmol/L (98-107); Potassium 3.9 mmol/L (3.5-5.1); Sodium 139 mmol/L (136-145)
[2025-09-04 06:25] LABS: Anion Gap 8 (5-15); Carbon Dioxide 25 mmol/L (20-31)
[2025-09-04 06:30] LABS: BUN/Creatinine Ratio 16.0 (10.0-20.0); Blood Urea Nitrogen 15 mg/dL (9-23); Glucose 75 mg/dL (74-106)
[2025-09-04 06:31] LABS: Magnesium 1.9 mg/dL (1.6-2.6)
[2025-09-04] MEDS: IPRATROPIUM BROM 0.5 MG/2.5ML INH SOL NEB PRN (08:15)
[2025-09-04] MEDS: ALBUTEROL SULF 2.5 MG/0.5ML(0.5%) NEB SOLN NEB PRN (08:15)
[2025-09-04] MEDS: METOPROLOL SUCCINATE XL 50 MG TAB PO SCH (08:16)
[2025-09-04] MEDS: TICAGRELOR 90 MG TAB PO SCH (08:16)
[2025-09-04] MEDS: ONDANSETRON HCL 4 MG/2 ML VIAL IV PRN (08:17)
[2025-09-04] MEDS: MORPHINE SULFATE 4 MG/ML SYR/VIAL IV PRN (08:18)
[2025-09-04] MEDS ORDERED: ASPirin-EC 81 mg tab PO SCH (10:00)
--- NOTE | 2025-09-04 11:05 | DVHPN2 ---
Subjective Status post PCI and angioplasty of the right coronary artery He is on aspirin and Lipitor and Brilinta right now Changes from previous H/P or p: Changes Cardiovascular: Chest Pain Objective Vitals Vital Signs Date Time Temp Pulse Resp B/P (MAP) Pulse Ox O2 Delivery O2 Flow Rate FiO2 09/04/25 10:00 98 Room Air* 0 21 09/04/25 09:00 97.5 72 18 127/87 (100) 97.5 Intake/Output Intake and Output 09/04/25 07:00 Intake Total 972 ml Balance 972 ml Intake Oral 840 ml IV Total 132 ml # Voids 6 General Appearance: Alert, Oriented X3, Cooperative Lungs: Clear to auscultation, Normal air movement Cardiovascular: Regular rate, Normal S2, No murmurs Abdomen: Normal bowel sounds, Soft, No tenderness Extremities: No edema Medications Current Medications Medications Dose Ordered Sig/Ebony Route Start Time Stop Time Status Last Admin Dose Admin Ondansetron HCl 4 mg Q4HP PRN IV 09/02/25 21:00 09/04/25 08:17 4 MG Nitroglycerin 0.4 mg Q5MINP PRN SL 09/02/25 21:00 Morphine Sulfate 2 mg Q30M PRN IV 09/02/25 21:00 Albuterol 1.25 mg Q4HPRN PRN NEB 09/02/25 21:45 09/04/25 08:15 1.25 MG Ipratropium [place] 0.5 mg Q4HPRN PRN NEB 09/02/25 21:45 09/04/25 08:15 0.5 MG Pantoprazole Sodium 40 mg DAILY IV 09/03/25 10:00 09/04/25 08:17 40 MG Lorazepam 0.5 mg Q6HP PRN IV 09/03/25 10:45 09/03/25 10:57 0.5 MG Ticagrelor 90 mg BID PO 09/04/25 08:00 09/04/25 10:25 90 MG Metoprolol Succinate 25 mg DAILY PO 09/04/25 10:00 09/04/25 08:16 25 MG Atorvastatin Calcium 80 mg HS PO 09/03/25 22:00 09/03/25 22:27 80 MG Aspirin 81 mg DAILY PO 09/04/25 10:00 09/04/25 08:16 81 MG Morphine Sulfate 2 mg Q4HPRN PRN IV 09/04/25 08:15 09/04/25 08:18 2 MG Laboratory Results Laboratory Tests 09/03/25 06:40 09/04/25 04:49 Chemistry Test 09/04/25 04:49 Calcium Level 9.2 mg/dL (8.7-10.4) Magnesium Level 1.9 mg/dL (1.6-2.6) Coagulation Test 09/03/25 15:55 09/04/25 00:18 Prothrombin Time 10.9 sec (9.3-11.8) 12.2 sec (9.3-11.8) H Prothrombin Time INR 1.03 (0.9-1.15) 1.17 (0.9-1.15) H Activated Partial Thromboplast Time 58.7 SEC (24.5-34.5) H 51.0 SEC (24.5-34.5) H Urinalysis Test 09/02/25 22:00 Urine Color Light-yellow (Yellow) Urine Clarity Clear (Clear) Urine pH 5.5 (5.0-9.0) Urine Specific [place] 1.013 (1.001-1.035) Urine Protein Negative (Negative) Urine Ketones Negative (Negative) Urine Blood Negative /uL (Negative) Urine Nitrite 1+ (Negative) H Urine Bilirubin Negative (Negative) Urine Urobilinogen Normal mg/dL (Negative) Urine Leukocyte Esterase Trace /uL (Negative) Urine RBC 7 /hpf (0 - 3) Urine Microscopic WBC 3 /HPF (0-3) Urine Squamous Epithelial Cells Few /hpf (<5) Urine Calcium Oxalate Crystals Few (None Seen) Urine Bacteria None seen /hpf (None Seen) Urine Yeast (Budding) Occasional /hpf (None Urine Glucose Normal mg/dL (Normal) Microbiology Microbiology Date/Time Source Procedure Growth Status 09/02/25 22:49 Blood Blood Culture - Preliminary NO GROWTH AFTER 24 HOURS OF INCUBATION. Resulted Assessment/Plan Assessment/Plan Acute [place], NSTEMI type 1 Hypertension Type 2 diabetes COPD Mixed hyperlipidemia Anxiety Tobacco smoking Plan Keep NPO Coronary angiogram today Aspirin IV heparin Beta blockers Morphine p.r.n. Lipitor Oxygen as needed Full code Monitor closely Ativan p.r.n. for anxiety 09/04/2025: Continue aspirin and Brilinta We might need to change Brilinta to Plavix for better coverage with his insurance Nicotine patch Lipitor Xanax as needed Plan discussed with: Patient My Orders Orders - CHRISTY HONEYCUTT MD Procedure Category Date Status Time Cl Left Heart Cath CL 09/03/25 Taken 18:12 Date of Service: Sep 04, 2025 Billing Provider: CHRISTY HONEYCUTT MD Common Visit Codes: NOT BILLABLE CHRISTY HONEYCUTT MD Sep 04, 2025 11:05
[2025-09-04] MEDS: ALPRAZolam 0.5 MG TAB PO PRN (11:22)
[2025-09-04] MEDS: NICOTINE 21MG/24 HR TOPICAL PATCH TD ONE (11:22)
--- NOTE | 2025-09-04 12:48 | DVHPN2 ---
Consult Progress Note Subjective Other Systems: Patient having multiple complaints today including nausea and dizziness. The patient admits he went outside and found a cigarette on the floor and smoked. The patient states he is feeling very anxious Objective vital signs Vital Sign Date Time Temp Pulse Resp B/P (MAP) Pulse Ox O2 Delivery O2 Flow Rate FiO2 09/04/25 10:00 98 Room Air* 0 21 09/04/25 09:00 97.5 72 18 127/87 (100) 97.5 Total Intake and Output 09/03/25 09/03/25 09/04/25 15:00 23:00 07:00 Intake Total 372 ml 600 ml Balance 372 ml 600 ml medications Current Medications Medications Dose Ordered Sig/Ebony Route Start Time Stop Time Status Last Admin Dose Admin Ondansetron HCl 4 mg Q4HP PRN IV 09/02/25 21:00 09/04/25 08:17 4 MG Nitroglycerin 0.4 mg Q5MINP PRN SL 09/02/25 21:00 Morphine Sulfate 2 mg Q30M PRN IV 09/02/25 21:00 Albuterol 1.25 mg Q4HPRN PRN NEB 09/02/25 21:45 09/04/25 08:15 1.25 MG Ipratropium [place] 0.5 mg Q4HPRN PRN NEB 09/02/25 21:45 09/04/25 08:15 0.5 MG Pantoprazole Sodium 40 mg DAILY IV 09/03/25 10:00 09/04/25 08:17 40 MG Ticagrelor 90 mg BID PO 09/04/25 08:00 09/04/25 10:25 90 MG Metoprolol Succinate 25 mg DAILY PO 09/04/25 10:00 09/04/25 08:16 25 MG Atorvastatin Calcium 80 mg HS PO 09/03/25 22:00 09/03/25 22:27 80 MG Aspirin 81 mg DAILY PO 09/04/25 10:00 09/04/25 08:16 81 MG Morphine Sulfate 2 mg Q4HPRN PRN IV 09/04/25 08:15 09/04/25 08:18 2 MG Nicotine 1 patch DAILY TD 09/05/25 10:00 Alprazolam 0.5 mg Q8HPRN PRN PO 09/04/25 11:15 09/04/25 11:22 0.5 MG Examination: GENERAL:Normal, LUNGS:Normal, CVS:Normal, NEURO:Normal laboratory and microbiology Laboratory Tests 09/04/25 04:49 09/03/25 06:40 Test 09/04/25 04:49 Range/Units Serum Glucose 75 74-106 mg/dL Problem List/Assessment/Plan Problem List/Assessment/Plan NSTEMI, s/p PTCA with stenting of RCA Hypertension Dyslipidemia COPD Tobacco use Marijuana use Plan/Recommendations (): * Transthoracic echocardiogram reveals EF of 65% * Continue Dual antiplatelet therapy * We will switch the patient to Plavix therapy given insurance and affordability * Continue Lipid-lowering agent * Close cardiac surveillance * Risk factor modifications, counseled * Cessation of tobacco use * Medication compliance * Dietary and lifestyle changes Case reviewed and discussed with . Thank you for allowing us to care for this patient. Please call with any questions or concerns. This medical document was created using an electronic medical record system with voice recognition software and computerized dictation system. Although this document has been carefully reviewed, there might still be some phonetic and typographical errors. Occasional wrong-word or ``sound-alike substitutions may have occurred due to the inherent limitations of voice recognition software. These areas are purely typographical due to imperfections of the software programs and do not reflect any compromise in the patient's medical care. Please read the chart carefully and recognize, using context, where these substitutions have occurred. Plan discussed with: Patient Date of Service: Sep 04, 2025 Billing Provider: ANDIE BERNSTEIN Common Visit Codes: [id number] INP/OBS CARE(HIGH) ANDIE BERNSTEIN Sep 04, 2025 12:48
--- NOTE | 2025-09-04 19:40 | DVHPN2 ---
Consult Progress Note Subjective Other Systems: Patient was seen and evaluated in follow up. Patient having multiple complaints today including nausea and dizziness. The patient admits he went outside and found a cigarette on the floor and smoked. The patient states he is feeling very anxious. Patient is s/p right coronary angiography, balloon angioplasty of the right coronary artery, stenting and angioplasty of the right coronary artery, balloon angioplasty of the right coronary artery stent.This is a successful procedure. I advised for Brilinta 90 mg b.i.d., metoprolol, cholesterol reducing medication. Dr. Dover is the admitting doctor over here, so I also discussed with him. Telemetry reviewed. Objective vital signs Vital Sign Date Time Temp Pulse Resp B/P (MAP) Pulse Ox O2 Delivery O2 Flow Rate FiO2 09/04/25 10:00 98 Room Air* 0 21 09/04/25 09:00 97.5 72 18 127/87 (100) 97.5 Total Intake and Output 09/03/25 09/03/25 09/04/25 15:00 23:00 07:00 Intake Total 372 ml 600 ml Balance 372 ml 600 ml medications Current Medications Medications Dose Ordered Sig/Ebony Route Start Time Stop Time Status Last Admin Dose Admin Ondansetron HCl 4 mg Q4HP PRN IV 09/02/25 21:00 09/04/25 08:17 4 MG Nitroglycerin 0.4 mg Q5MINP PRN SL 09/02/25 21:00 Morphine Sulfate 2 mg Q30M PRN IV 09/02/25 21:00 Albuterol 1.25 mg Q4HPRN PRN NEB 09/02/25 21:45 09/04/25 08:15 1.25 MG Ipratropium [place] 0.5 mg Q4HPRN PRN NEB 09/02/25 21:45 09/04/25 08:15 0.5 MG Pantoprazole Sodium 40 mg DAILY IV 09/03/25 10:00 09/04/25 08:17 40 MG Metoprolol Succinate 25 mg DAILY PO 09/04/25 10:00 09/04/25 08:16 25 MG Atorvastatin Calcium 80 mg HS PO 09/03/25 22:00 09/03/25 22:27 80 MG Aspirin 81 mg DAILY PO 09/04/25 10:00 09/04/25 08:16 81 MG Morphine Sulfate 2 mg Q4HPRN PRN IV 09/04/25 08:15 09/04/25 08:18 2 MG Nicotine 1 patch DAILY TD 09/05/25 10:00 Alprazolam 0.5 mg Q8HPRN PRN PO 09/04/25 11:15 09/04/25 11:22 0.5 MG Clopidogrel Bisulfate 75 mg DAILY PO 09/05/25 10:00 Examination: GENERAL:Normal, HEENT:Normal, NECK:Normal, LUNGS:Normal, CVS:Normal, ABDOMEN:Normal, SKIN:Normal, NEURO:Normal laboratory and microbiology Laboratory Tests 09/04/25 04:49 09/03/25 06:40 Test 09/04/25 04:49 Range/Units Serum Glucose 75 74-106 mg/dL Problem List/Assessment/Plan Problem List/Assessment/Plan Problem list NSTEMI, , s/p PTCA with stenting of RCA Hypertension. Dyslipidemia. COPD. History of tobacco use. Marijuana use. Plan/Recommendation Continued all current supportive medical care. Patient has been seen by Rosana Mata NP on my behalf, her and I discussed the plan with the patient. Transthoracic echocardiogram reveals EF of 65%. Continue Dual antiplatelet therapy. We will switch the patient to Plavix therapy given insurance and affordability. Continue Lipid-lowering agent. Close cardiac surveillance. Risk factor modifications, counseled. Cessation of tobacco use. Medication compliance. Dietary and lifestyle changes. Additional plan as per the hospital course. Plan discussed with: Patient Date of Service: Sep 04, 2025 Billing Provider: NOLAN JULIO MD Cardiology Common Codes: [id number] [facility](High NOLAN JULIO MD Sep 04, 2025 14:01
[2025-09-04] MEDS: CLOPIDOGREL BISULFATE 75 MG TAB PO ONE (21:25)
[2025-09-05] VITALS (7 sets, daily range): BP systolic 119–141; BP diastolic 78–89; PULSE 59–76; RESP 15–20; TEMP 98.2–98.9; O2SAT 95–98
[2025-09-05] MEDS: CLOPIDOGREL BISULFATE 75 MG TAB PO SCH (09:34)
[2025-09-05] MEDS: NICOTINE 21MG/24 HR TOPICAL PATCH TD SCH (09:43)
[2025-09-05] MEDS ORDERED: ASPirin-EC 81 mg tab PO SCH (10:00)
--- NOTE | 2025-09-05 10:51 | DVHPN2 ---
Consult Progress Note Subjective Patient reports: Feels better Other Systems: In normal sinus rhythm on cardiac rehabilitation specialist at time of assessment. The patient denies any cardiac symptoms at time of assessment Objective vital signs Vital Sign Date Time Temp Pulse Resp B/P (MAP) Pulse Ox O2 Delivery O2 Flow Rate FiO2 09/05/25 10:24 66 20 141/85 09/05/25 07:26 97 Room Air* 0 21 09/05/25 04:45 98.6 98.6 Total Intake and Output 09/04/25 09/04/25 09/05/25 15:00 23:00 07:00 Intake Total 78 ml 920 ml Balance 78 ml 920 ml medications Current Medications Medications Dose Ordered Sig/Ebony Route Start Time Stop Time Status Last Admin Dose Admin Ondansetron HCl 4 mg Q4HP PRN IV 09/02/25 21:00 09/04/25 08:17 4 MG Nitroglycerin 0.4 mg Q5MINP PRN SL 09/02/25 21:00 Morphine Sulfate 2 mg Q30M PRN IV 09/02/25 21:00 Albuterol 1.25 mg Q4HPRN PRN NEB 09/02/25 21:45 09/04/25 19:12 1.25 MG Ipratropium [place] 0.5 mg Q4HPRN PRN NEB 09/02/25 21:45 09/04/25 19:12 0.5 MG Pantoprazole Sodium 40 mg DAILY IV 09/03/25 10:00 09/05/25 09:36 40 MG Metoprolol Succinate 25 mg DAILY PO 09/04/25 10:00 09/05/25 09:45 25 MG Atorvastatin Calcium 80 mg HS PO 09/03/25 22:00 09/04/25 21:25 80 MG Aspirin 81 mg DAILY PO 09/04/25 10:00 09/05/25 09:33 81 MG Morphine Sulfate 2 mg Q4HPRN PRN IV 09/04/25 08:15 09/05/25 10:24 2 MG Nicotine 1 patch DAILY TD 09/05/25 10:00 09/05/25 09:43 1 PATCH Alprazolam 0.5 mg Q8HPRN PRN PO 09/04/25 11:15 09/05/25 09:34 0.5 MG Clopidogrel Bisulfate 75 mg DAILY PO 09/05/25 10:00 09/05/25 09:34 75 MG Aspirin 81 mg DAILY PO 09/05/25 10:00 UNV Examination: GENERAL:Normal, LUNGS:Normal, CVS:Normal, NEURO:Normal laboratory and microbiology Laboratory Tests 09/04/25 04:49 09/03/25 06:40 Test 09/04/25 04:49 Range/Units Serum Glucose 75 74-106 mg/dL Problem List/Assessment/Plan Problem List/Assessment/Plan NSTEMI, s/p PTCA with stenting of RCA Hypertension Dyslipidemia COPD Tobacco use Marijuana use Plan/Recommendations (): * Transthoracic echocardiogram reveals EF of 65% * Continue Dual antiplatelet therapy: Plavix/ASA * Continue Lipid-lowering agent * Close cardiac surveillance * Risk factor modifications, counseled * Cessation of tobacco use * Medication compliance * Dietary and lifestyle changes Case reviewed and discussed with . The patient was educated that he will need to establish a quantitative analyst marketing in the outpatient setting and follow up within 1-2 weeks post discharge. Thank you for allowing us to care for this patient. Please call with any questions or concerns. This medical document was created using an electronic medical record system with voice recognition software and computerized dictation system. Although this document has been carefully reviewed, there might still be some phonetic and typographical errors. Occasional wrong-word or ``sound-alike substitutions may have occurred due to the inherent limitations of voice recognition software. These areas are purely typographical due to imperfections of the software programs and do not reflect any compromise in the patient's medical care. Please read the chart carefully and recognize, using context, where these substitutions have occurred. Plan discussed with: Patient Date of Service: Sep 05, 2025 Billing Provider: ANDIE BERNSTEIN Common Visit Codes: [id number] INP/OBS CARE(HIGH) ANDIE BERNSTEIN Sep 05, 2025 10:51
[2025-09-05] MEDS ORDERED: ALPR0.25 PO (11:14)
[2025-09-05] MEDS ORDERED: CLOP75TA70 PO ×2 (11:14→11:17)
[2025-09-05] MEDS ORDERED: ASPI-325 PO ×2 (11:14→11:17)
[2025-09-05] MEDS ORDERED: ATOR80TA PO ×2 (11:14→11:17)
[2025-09-05] MEDS ORDERED: METO25TA36 PO (11:20)
--- NOTE | 2025-09-05 11:21 | DVHDS2 ---
Discharge Summary Date of Admission Sep 02, 2025 at 20:58 Date of Discharge: Sep 05, 2025 Labs/Diagnostic Data: Laboratory Results Test 09/04/25 04:49 09/04/25 00:18 09/03/25 06:40 09/02/25 22:00 Sodium Level 139 mmol/L (136-145) Potassium Level 3.9 mmol/L (3.5-5.1) Chloride Level 106 mmol/L (98-107) Carbon Dioxide Level 25 mmol/L (20-31) Anion Gap 8 (5-15) Blood Urea Nitrogen 15 mg/dL (9-23) Creatinine 0.94 mg/dL (0.700-1.30) Glomerular Filtration Rate Calc 86 mL/min (>90) BUN/Creatinine Ratio 16.0 (10.0-20.0) Serum Glucose 75 mg/dL (74-106) Calcium Level 9.2 mg/dL (8.7-10.4) Magnesium Level 1.9 mg/dL (1.6-2.6) Prothrombin Time 12.2 sec (9.3-11.8) Prothrombin Time INR 1.17 (0.9-1.15) Activated Partial Thromboplast Time 51.0 SEC (24.5-34.5) White Blood Count 9.8 10^3/uL (4.4-10.8) Red Blood Count 5.14 10^6/uL (4.5-5.90) Hemoglobin 14.8 g/dL (13.5-17.5) Hematocrit 44.3 % (41.0-53.0) Mean Corpuscular Volume 86.2 fL (80.0-100.0) Mean Corpuscular Hemoglobin 28.9 pg (28.0-32.0) Mean Corpuscular Hemoglobin Concent 33.5 g/dL (32.0-36.0) Red Cell Distribution Width 13.1 % (11.8-14.3) Platelet Count 231 10^3/uL (140-450) Mean Platelet Volume 8.0 fL (6.9-10.8) Neutrophils (%) (Auto) 55.4 % (37.0-80.0) Lymphocytes (%) (Auto) 26.8 % (10.0-50.0) Monocytes (%) (Auto) 11.1 % (0.0-12.0) Eosinophils (%) (Auto) 6.3 % (0.0-7.0) Basophils (%) (Auto) 0.4 % (0.0-2.0) Neutrophils # (Auto) 5.4 10 ^3/uL (1.6-8.6) Lymphocytes # (Auto) 2.6 10 ^3/uL (0.4-5.4) Monocytes # (Auto) 1.1 10 ^3/uL (0-1.3) Eosinophils # (Auto) 0.6 10 ^3/uL (0-0.8) Basophils # (Auto) 0 10 ^3/uL (0-0.2) Nucleated Red Blood Cells 0.1 % Total Bilirubin 0.9 mg/dL (0.2-1.0) Aspartate Amino Transferase (AST) 70 U/L (13-40) Alanine Aminotransferase (ALT) 20 U/L (7-40) Alkaline Phosphatase 53 U/L (46-116) Total Protein 6.4 g/dL (5.7-8.2) Albumin 3.9 g/dL (3.2-4.8) Urine Color Light-yellow (Yellow) Urine Clarity Clear (Clear) Urine pH 5.5 (5.0-9.0) Urine Specific [place] 1.013 (1.001-1.035) Urine Protein Negative (Negative) Urine Ketones Negative (Negative) Urine Blood Negative /uL (Negative) Urine Nitrite 1+ (Negative) Urine Bilirubin Negative (Negative) Urine Urobilinogen Normal mg/dL (Negative) Urine Leukocyte Esterase Trace /uL (Negative) Urine RBC 7 /hpf (0 - 3) Urine Microscopic WBC 3 /HPF (0-3) Urine Squamous Epithelial Cells Few /hpf (<5) Urine Calcium Oxalate Crystals Few (None Seen) Urine Bacteria None seen /hpf (None Seen) Urine Yeast (Budding) Occasional /hpf (None Urine Glucose Normal mg/dL (Normal) Urine Opiates Screen Neg (NEGATIVE) Urine Fentanyl Screen Neg (NEGATIVE) Urine Barbiturates Screen Neg (NEGATIVE) Urine Phencyclidine Screen Neg (NEGATIVE) Urine Amphetamines Screen Neg (NEGATIVE) Urine Benzodiazepines Screen Neg (NEGATIVE) Urine Cocaine Screen Neg (NEGATIVE) Urine Cannabinoids Screen Pos (NEGATIVE) Test 09/02/25 21:43 09/02/25 19:47 09/02/25 18:52 Troponin I High Sensitivity 90524 ng/L (</=54) B-Type Natriuretic Peptide 202.68 pg/mL (0-100) Triglycerides Level 186 mg/dL (< 150) Cholesterol Level 179 mg/dL (< 200) LDL Cholesterol 123 mg/dL (< 100) HDL Cholesterol 39 mg/dL (40-59) Hemoglobin A1c 5.6 % A1C (<5.7) Other Laboratory Tests 09/04/25 04:49 09/03/25 06:40 Brief Hx & Hospital Course: Final diagnoses: Acute VT, NSTEMI type 1 Status post RCA PCI and stent placement Hypertension Type 2 diabetes COPD Mixed hyperlipidemia Anxiety Tobacco smoking 70-year-old male was admitted for chest pain and NSTEMI with elevated troponin He underwent angiogram which showed right coronary artery disease which required PCI and stent placement He was started on dual antiplatelet anticoagulation He was started on Lipitor and beta blockers The patient is stable for discharge now He was having anxiety so he was given Xanax here Discharged home on aspirin and Plavix and Lipitor and metoprolol Continue lisinopril Discontinue amlodipine Xanax p.r.n. for anxiety Follow up with his primary care physician as soon as possible Condition at Discharge: Stable Final Diagnosis/Problems List Acute VT, NSTEMI type 1 Hypertension Type 2 diabetes COPD Mixed hyperlipidemia Anxiety Tobacco smoking Discharge Disposition: Home SNF Discharge Will this Physician continue t: No Discharge Instruct/Medications Diet: Consistent carbohydrate, Cardiac 2g Na,low cholest Activity: No Restrictions, As Tolerated Follow Up/Referral: PCP LUCIANA Medications: 81 mg daily Plavix 75 mg daily Lipitor 80 mg daily Xanax 0.25 mg daily p.r.n. Scheduled Amlodipine Besylate (Amlodipine Besylate), 10 TAB PO DAILY, (Reported) Aspirin (Aspirin Low Dose), 81 MG PO DAILY Atorvastatin Calcium (Lipitor), 1 TAB PO DAILY Clopidogrel Bisulfate (Clopidogrel), 75 MG PO DAILY Lisinopril (Lisinopril), 40 TAB PO DAILY, (Reported) Scheduled PRN Alprazolam (Xanax), 1 TAB PO DAILY PRN Discharge Statement: "Patient was advised to return to the ER or call 911 if any headaches, dizziness, shortness of breath, chest pain, abdominal pain, bleeding, fevers, or worsening of medical condition. Patient was counseled about treatment plan, medications, possible side effects, patientverbalized understanding. All questions were answered to the best of my ability. This discharge took greater then 30 minutes in planning, reviewing documentation, counseling the patient, and discussing with other team members." ASSESSMENT ASSESSMENT Assessment Acute VT, NSTEMI type 1 Hypertension Type 2 diabetes COPD Mixed hyperlipidemia Anxiety Tobacco smoking Date of Service: Sep 05, 2025 Billing Provider: CHRISTY HONEYCUTT MD Common Visit Codes: NOT BILLABLE CHRISTY HONEYCUTT MD Sep 05, 2025 11:20
--- NOTE | 2025-09-05 18:50 | DVHPN2 ---
Consult Progress Note Subjective Patient reports: Feels better Other Systems: Patient was seen and evaluated in follow up. In normal sinus rhythm on cardiac cath tech at time of assessment. The patient denies any cardiac symptoms at time of assessment. Telemetry reviewed. Objective vital signs Vital Sign Date Time Temp Pulse Resp B/P (MAP) Pulse Ox O2 Delivery O2 Flow Rate FiO2 09/05/25 10:24 66 20 141/85 09/05/25 09:00 98.2 98 98.2 09/05/25 07:26 Room Air* 0 21 Total Intake and Output 09/04/25 09/04/25 09/05/25 15:00 23:00 07:00 Intake Total 78 ml 920 ml Balance 78 ml 920 ml medications Current Medications Medications Dose Ordered Sig/Ebony Route Start Time Stop Time Status Last Admin Dose Admin Ondansetron HCl 4 mg Q4HP PRN IV 09/02/25 21:00 09/04/25 08:17 4 MG Nitroglycerin 0.4 mg Q5MINP PRN SL 09/02/25 21:00 Morphine Sulfate 2 mg Q30M PRN IV 09/02/25 21:00 Albuterol 1.25 mg Q4HPRN PRN NEB 09/02/25 21:45 09/04/25 19:12 1.25 MG Ipratropium [place] 0.5 mg Q4HPRN PRN NEB 09/02/25 21:45 09/04/25 19:12 0.5 MG Pantoprazole Sodium 40 mg DAILY IV 09/03/25 10:00 09/05/25 09:36 40 MG Metoprolol Succinate 25 mg DAILY PO 09/04/25 10:00 09/05/25 09:45 25 MG Atorvastatin Calcium 80 mg HS PO 09/03/25 22:00 09/04/25 21:25 80 MG Aspirin 81 mg DAILY PO 09/04/25 10:00 09/05/25 09:33 81 MG Morphine Sulfate 2 mg Q4HPRN PRN IV 09/04/25 08:15 09/05/25 10:24 2 MG Nicotine 1 patch DAILY TD 09/05/25 10:00 09/05/25 09:43 1 PATCH Alprazolam 0.5 mg Q8HPRN PRN PO 09/04/25 11:15 09/05/25 09:34 0.5 MG Clopidogrel Bisulfate 75 mg DAILY PO 09/05/25 10:00 09/05/25 09:34 75 MG Aspirin 81 mg DAILY PO 09/05/25 10:00 UNV Examination: GENERAL:Normal, HEENT:Normal, NECK:Normal, LUNGS:Normal, CVS:Normal, NEURO:Normal laboratory and microbiology Laboratory Tests 09/04/25 04:49 09/03/25 06:40 Test 09/04/25 04:49 Range/Units Serum Glucose 75 74-106 mg/dL Problem List/Assessment/Plan Problem List/Assessment/Plan Problem list NSTEMI, , s/p PTCA with stenting of RCA Hypertension. Dyslipidemia. COPD. History of tobacco use. Marijuana use. Plan/Recommendation Continued all current supportive medical care. Patient has been seen by Rosana Mata NP on my behalf, her and I discussed the plan with the patient. Transthoracic echocardiogram reveals EF of 65%. Continue Dual antiplatelet therapy: Plavix/ASA. Continue Lipid-lowering agent. Close cardiac surveillance. Risk factor modifications, counseled. Cessation of tobacco use. Medication compliance. Dietary and lifestyle changes. The patient was educated that he will need to establish a saw setter in the outpatient setting and follow up within 1-2 weeks post discharge. Additional plan as per the hospital course. Plan discussed with: Patient Date of Service: Sep 05, 2025 Billing Provider: NOLAN JULIO MD Cardiology Common Codes: [id number] HOSP CARE(High NOLAN JULIO MD Sep 05, 2025 14:25
--- NOTE | 2025-09-05 18:52 | DVHOP ---
DATE OF SURGERY: 09/03/2025 TECHNIQUE PERFORMED: * Ultrasound radial artery management. * Management of conscious sedation. * Left heart catheterization. * Left ventriculogram. * [place] selective left and right coronary artery angiography. INDICATION: Acute non-ST elevation myocardial infarction, troponin 15,000 DESCRIPTION OF PROCEDURE: In a standard manner, the patient has been brought to our [facility]. The indications for risks and benefits were explained. The right thoroughly cleaned with soap and Betadine. A 6-[place] arterial line has been placed. The TIG catheter 5-[place] 4.0 and left heart catheterization done. The left ventriculogram was done. Subsequently, the left coronary angiography was done and subsequently with the help of a 3DRC catheter, the right coronary angiography also has been done. IMPRESSION: * Normal left main. * Left anterior descending artery proximally narrow, 30%. * Circumflex obtuse marginal artery is normal. * Right coronary artery is a very large luminal artery. 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 The length of the lesion is at least 24 mm in length; thrombotic and SALINAS grade 0 flow. Ejection fraction of the left ventricle is in the range of 60%. PLAN OF ACTION: The plan was to advise the patient to undergo intervention on the right coronary artery. Pineda Sánchez MD MP/TAMMY TID: [id number] RECEIPT: [id number]
== END 2025-09-05 16:09 | disposition home or self-care (01) | DRG 321 ==
LOC: ER 18:25 → OVERFLOW 20:58 → TELE-WESTW 22:16
PROVIDERS: ADMIT Internal Medicine Geriatric Medicine; ATTEND Internal Medicine Geriatric Medicine
PROC: 027034Z Dilation of Coronary Artery, One Artery with Drug-eluting Intraluminal Device, Percutaneous Approach (ICD-10-PCS; principal; 2025-09-03)
PROC: B240ZZ3 Ultrasonography of Single Coronary Artery, Intravascular (ICD-10-PCS; 2025-09-03)
PROC: 4A023N7 Measurement of Cardiac Sampling and Pressure, Left Heart, Percutaneous Approach (ICD-10-PCS; 2025-09-03)
PROC: B211YZZ Fluoroscopy of Multiple Coronary Arteries using Other Contrast (ICD-10-PCS; 2025-09-03)
PROC: B215YZZ Fluoroscopy of Left Heart using Other Contrast (ICD-10-PCS; 2025-09-03)
DX: I21.4 Non-ST elevation (NSTEMI) myocardial infarction (principal); I50.31 Acute diastolic (congestive) heart failure; E11.9 Type 2 diabetes mellitus without complications; J44.9 Chronic obstructive pulmonary disease, unspecified; I10 Essential (primary) hypertension; I25.10 Atherosclerotic heart disease of native coronary artery without angina pectoris; F41.9 Anxiety disorder, unspecified; E78.2 Mixed hyperlipidemia; F17.210 Nicotine dependence, cigarettes, uncomplicated; I25.2 Old myocardial infarction; Z79.82 Long term (current) use of aspirin; Z90.5 Acquired absence of kidney; Z95.5 Presence of coronary angioplasty implant and graft
CPT/HCPCS: 36415; 71045; 80048; 80053; 80061; 80307; 81001; 83036; 83735; 83880; 84484; 85025; 85610; 85730; 86850; 86900; 86901; 87040; 92941; 92978; 93306; 93458; 94640; 96365; 96375; 99152; 99291; C1725; C1887; G0378; J2250; J2405; J2470; Q9967